=== PATIENT | female | born 1960 | race Caucasian/White ===

== ENCOUNTER → 2017-12-04 15:47 | Outpatient (REF) | payer MEDICARE, OTHER, SELFPAY ==
[2017-12-04 18:37] LABS: Basophils # 0.1 K/mm3 (0-0.2); Basophils % 0.5 % (0.1-2.0); Eosinophils # 0.3 K/mm3 (0.0-0.4); Eosinophils % 2.6 % (0.1-12.0); Hematocrit 45.7 % (37.0-47.0); Hemoglobin 14.1 g/dL (12.2-16.2); Lymphocytes # 1.8 K/mm3 (0.7-4.5); Lymphocytes % 19.3 K/mm3 (10-50); Mean Corpuscular HGB Conc 30.8 g/dL (31.8-35.4); Mean Corpuscular Hemoglobin 25.5 pg (27.0-31.2); Mean Corpuscular Volume 82.6 fl (81-99); Mean Platelet Volume 8.7 fl (7.4-10.4); Monocytes # 0.5 K/mm3 (0.1-1.0); Monocytes % 5.6 % (1.7-9.3); Neutrophils # 6.9 K/mm3 (1.8-7.8); Neutrophils % 71.9 % (37.0-80.0); Platelet Count 381 K/mm3 (142-424); Red Blood Count 5.53 M/mm3 (4.20-5.40); Red Cell Distribution Width 14.2 % (11.5-17.5); White Blood Count 9.6 K/mm3 (4.8-10.8)
[2017-12-04 19:07] LABS: Alanine Aminotransferase 25 U/L (12-78); Albumin Level 3.3 gm/dL (3.4-5.0); Albumin/Globulin Ratio 0.7 (1.1-1.8); Alkaline Phosphatase 125 U/L (46-116); Anion Gap 14.3 mEq/L (5-15); Aspartate Amino Transferase 17 U/L (15-37); Bilirubin,Total 0.4 mg/dL (0.2-1.0); Blood Urea Nitrogen 17 mg/dL (7-18); Calcium 9.4 mg/dL (8.5-10.1); Carbon Dioxide 27 mmol/L (21.0-32.0); Chloride 102 mmol/L (98-107); Chol/HDL Ratio 8.8 (1-3.5); Cholesterol 256 mg/dL (140-200); Creatinine,Serum 0.96 mg/dL (0.55-1.02); Estimated Glomerular Filt Rate 60 ml/min (>60); GFR (African American) 72 ML/MIN (>60); Globulin 4.9 gm/dl (1.3-3.2); Glucose 102 mg/dL (74-106); HDL Cholesterol 29 mg/dL (29-89); LDL Cholesterol 186 mg/dL (0-130); Potassium 4.3 mmoL/L (3.5-5.1); Sodium 139 mmol/L (136-145); T4 (Thyroxine) 8.2 ug/dl (4.7-13.3); Thyroid Stimulating Hormone 4.64 uIU/ml (0.358-3.740); Total Protein,Serum 8.2 gm/dL (6.4-8.2); Triglycerides 206 mg/dL (30-200); VLDL Cholesterol 41 mg/dL (0-40)
== END ==
LOC: LAB 15:47
PROVIDERS: Visit Provider Physician Assistant
DX: F32.9 Major depressive disorder, single episode, unspecified (principal); M79.7 Fibromyalgia; L40.50 Arthropathic psoriasis, unspecified; R06.81 Apnea, not elsewhere classified
CPT/HCPCS: 80053; 80061; 84436; 84443; 85025

== ENCOUNTER → 2018-02-26 11:45 | Outpatient (CLI) | payer MEDICARE, OTHER, SELFPAY | PROVIDERS: Visit Provider Physician Assistant | DX: R91.8 Other nonspecific abnormal finding of lung field (principal); Z83.2 Family history of diseases of the blood and blood-forming organs and certain disorders involving the immune mechanism ==

== ENCOUNTER → 2018-02-28 09:23 | Outpatient (CLI) | payer MEDICARE, OTHER, SELFPAY ==
[2018-02-28 10:00] LABS: Basophils # 0.1 K/mm3 (0-0.2); Basophils % 0.5 % (0.1-2.0); Eosinophils # 0.3 K/mm3 (0.0-0.4); Eosinophils % 3.1 % (0.1-12.0); Hematocrit 42.9 % (37.0-47.0); Hemoglobin 13.4 g/dL (12.2-16.2); Lymphocytes # 1.8 K/mm3 (0.7-4.5); Lymphocytes % 19.7 K/mm3 (10-50); Mean Corpuscular HGB Conc 31.3 g/dL (31.8-35.4); Mean Corpuscular Hemoglobin 26.1 pg (27.0-31.2); Mean Corpuscular Volume 83.4 fl (81-99); Mean Platelet Volume 7.6 fl (7.4-10.4); Monocytes # 0.5 K/mm3 (0.1-1.0); Monocytes % 5.2 % (1.7-9.3); Neutrophils # 6.5 K/mm3 (1.8-7.8); Neutrophils % 71.4 % (37.0-80.0); Platelet Count 325 K/mm3 (142-424); Red Blood Count 5.14 M/mm3 (4.20-5.40); Red Cell Distribution Width 14.6 % (11.5-17.5)
[2018-02-28 10:42] LABS: Alanine Aminotransferase 23 U/L (12-78); Albumin Level 3.1 gm/dL (3.4-5.0); Albumin/Globulin Ratio 0.7 (1.1-1.8); Alkaline Phosphatase 124 U/L (46-116); Anion Gap 10.5 mEq/L (5-15); Aspartate Amino Transferase 12 U/L (15-37); Bilirubin,Total 0.3 mg/dL (0.2-1.0); Blood Urea Nitrogen 17 mg/dL (7-18); C-Reactive Protein 2.2 mg/L (0.0-0.9); Calcium 9.2 mg/dL (8.5-10.1); Carbon Dioxide 29 mmol/L (21.0-32.0); Chloride 105 mmol/L (98-107); Creatinine,Serum 1.01 mg/dL (0.55-1.02); Estimated Glomerular Filt Rate 56 ml/min (>60); GFR (African American) 68 ML/MIN (>60); Globulin 4.4 gm/dl (1.3-3.2); Glucose 133 mg/dL (74-106); Potassium 4.5 mmoL/L (3.5-5.1); Sodium 140 mmol/L (136-145); Total Protein,Serum 7.5 gm/dL (6.4-8.2)
[2018-02-28 11:00] LABS: Erythrocyte Sedimentation Rate 40 mm/hr (0-30)
[2018-03-04 05:23] LABS: Angiotensin Converting Enzyme 54 U/L (14-82); Antinuclear Antibodies, IFA Negative (.); Calcium, Urine 34.4 mg/dL (Not Estab.); Calcium, Urine 24hr 350.9 mg/24 hr (100.0-300.0)
== END ==
PROVIDERS: PCP Physician Assistant; Visit Provider Physician Assistant
DX: R91.8 Other nonspecific abnormal finding of lung field (principal)
CPT/HCPCS: 36415; 80053; 82164; 82340; 85025; 85651; 86038; 86140

== ENCOUNTER → 2018-04-02 20:02 | Outpatient (CLI) | payer MEDICARE, OTHER, SELFPAY | PROVIDERS: PCP Physician Assistant; Visit Provider Physician Assistant | DX: G47.33 Obstructive sleep apnea (adult) (pediatric); E66.9 Obesity, unspecified | CPT/HCPCS: 95810 ==

== ENCOUNTER → 2018-05-13 17:54 | Outpatient (CLI) | payer MEDICARE, OTHER, SELFPAY ==
[2018-05-13 18:39] LABS: Alanine Aminotransferase 31 U/L (12-78); Albumin Level 3.2 gm/dL (3.4-5.0); Albumin/Globulin Ratio 0.7 (1.1-1.8); Alkaline Phosphatase 129 U/L (46-116); Anion Gap 14.2 mEq/L (5-15); Aspartate Amino Transferase 16 U/L (15-37); Bilirubin,Total 0.3 mg/dL (0.2-1.0); Blood Urea Nitrogen 18 mg/dL (7-18); Calcium 9.1 mg/dL (8.5-10.1); Carbon Dioxide 26 mmol/L (21.0-32.0); Chloride 102 mmol/L (98-107); Creatinine,Serum 0.93 mg/dL (0.55-1.02); Estimated Glomerular Filt Rate 62 ml/min (>60); GFR (African American) 75 ML/MIN (>60); Globulin 4.5 gm/dl (1.3-3.2); Glucose 112 mg/dL (74-106); Potassium 4.2 mmoL/L (3.5-5.1); Sodium 138 mmol/L (136-145); Total Protein,Serum 7.7 gm/dL (6.4-8.2)
== END ==
PROVIDERS: Visit Provider Physician Assistant
DX: R73.9 Hyperglycemia, unspecified (principal)
CPT/HCPCS: 80053

== ENCOUNTER → 2018-07-23 11:32 | Outpatient (POV) | payer MEDICARE, OTHER, SELFPAY | PROVIDERS: Visit Provider Otolaryngology | DX: Z00.00 Encounter for general adult medical examination without abnormal findings (principal) ==

== ENCOUNTER → 2019-01-31 14:39 | Outpatient (CLI) | payer MEDICARE, OTHER, SELFPAY | PROVIDERS: Visit Provider Nurse Practitioner Family | DX: R30.0 Dysuria (principal) | CPT/HCPCS: 87086; 87088; 87186 ==

== ENCOUNTER → 2019-03-13 13:27 | Outpatient (CLI) | payer MEDICARE, OTHER, SELFPAY ==
[2019-03-13 13:58] LABS: Basophils % 0.5 % (0.1-2.0); Eosinophils # 0.2 K/mm3 (0.0-0.4); Eosinophils % 3.1 % (0.1-12.0); Hematocrit 43.6 % (37.0-47.0); Hemoglobin 13.2 g/dL (12.2-16.2); Lymphocytes # 1.7 K/mm3 (0.7-4.5); Lymphocytes % 22.8 % (10-50); Mean Corpuscular HGB Conc 30.2 g/dL (31.8-35.4); Mean Corpuscular Hemoglobin 25.7 pg (27.0-31.2); Mean Corpuscular Volume 85.2 fl (81-99); Mean Platelet Volume 8.3 fl (7.4-10.4); Monocytes # 0.4 K/mm3 (0.1-1.0); Monocytes % 5.9 % (1.7-9.3); Neutrophils # 5.1 K/mm3 (1.8-7.8); Neutrophils % 67.7 % (37.0-80.0); Platelet Count 398 K/mm3 (142-424); Red Blood Count 5.11 M/mm3 (4.20-5.40); Red Cell Distribution Width 15.6 % (11.5-17.5); White Blood Count 7.5 K/mm3 (4.8-10.8)
[2019-03-13 15:09] LABS: Alanine Aminotransferase 18 U/L (12-78); Albumin Level 3.4 gm/dL (3.4-5.0); Albumin/Globulin Ratio 0.7 (1.1-1.8); Alkaline Phosphatase 130 U/L (46-116); Anion Gap 16.1 mEq/L (5-15); Aspartate Amino Transferase 14 U/L (15-37); Bilirubin,Total 0.5 mg/dL (0.2-1.0); Blood Urea Nitrogen 11 mg/dL (7-18); Calcium 9.2 mg/dL (8.5-10.1); Carbon Dioxide 24 mmol/L (21.0-32.0); Chloride 103 mmol/L (98-107); Chol/HDL Ratio 8.7 (1-3.5); Cholesterol 217 mg/dL (140-200); Creatinine,Serum 0.91 mg/dL (0.55-1.02); Estimated Glomerular Filt Rate 63 ml/min (>60); GFR (African American) 77 ML/MIN (>60); Globulin 4.6 gm/dl (1.3-3.2); Glucose 103 mg/dL (74-106); HDL Cholesterol 25 mg/dL (29-89); LDL Cholesterol 162 mg/dL (0-130); Potassium 4.1 mmoL/L (3.5-5.1); Sodium 139 mmol/L (136-145); T4 (Thyroxine) 8.9 ug/dl (4.7-13.3); Thyroid Stimulating Hormone 4.91 uIU/ml (0.358-3.740); Triglycerides 150 mg/dL (30-200); VLDL Cholesterol 30 mg/dL (0-40)
[2019-03-13 15:26] LABS: Hemoglobin A1C 7.1 % (0.0-7.0)
[2019-03-15 13:48] LABS: Vitamin D 25 Hydroxy 27.2 ng/mL (30.0-100.0)
== END ==
PROVIDERS: Visit Provider Nurse Practitioner Family
DX: E11.9 Type 2 diabetes mellitus without complications (principal); Z79.84 Long term (current) use of oral hypoglycemic drugs
CPT/HCPCS: 80053; 80061; 82652; 83036; 84436; 84443; 85025

== ENCOUNTER → 2019-05-26 15:01 | Outpatient (CLI) | payer MEDICARE, OTHER, SELFPAY ==
[2019-05-26 22:12] LABS: Ferritin 35 ng/mL (8-388)
[2019-05-28 15:30] LABS: Vitamin B12 390 pg/mL (232-1245)
== END ==
PROVIDERS: Visit Provider Specialist
DX: E03.9 Hypothyroidism, unspecified (principal); E53.8 Deficiency of other specified B group vitamins; E83.10 Disorder of iron metabolism, unspecified; G25.81 Restless legs syndrome; G47.33 Obstructive sleep apnea (adult) (pediatric)
CPT/HCPCS: 36415; 82607; 82728; 84443

== ENCOUNTER → 2019-07-24 20:24 | Outpatient (CLI) | payer MEDICARE, MEDICAID, SELFPAY | PROVIDERS: PCP Nurse Practitioner Family; Visit Provider Specialist | DX: G47.33 Obstructive sleep apnea (adult) (pediatric) (principal); R40.0 Somnolence; R06.83 Snoring; G25.81 Restless legs syndrome | CPT/HCPCS: 95810 ==

== ENCOUNTER → 2019-09-29 14:27 | Outpatient (POV) | payer MEDICARE, MEDICAID, SELFPAY | PROVIDERS: PCP Nurse Practitioner Family; Visit Provider Specialist | DX: M79.604 Pain in right leg (principal); M79.605 Pain in left leg; M79.601 Pain in right arm | CPT/HCPCS: 95886; 95909 ==

== ENCOUNTER 2023-09-24 23:22 | Outpatient (CLI) | payer MEDICARE, MEDICAID, SELFPAY ==
[2023-09-24 17:57] LABS: Basophils # 0.1 K/mm3 (0-0.2); Basophils % 1.1 % (0.1-2.0); Eosinophils # 0.1 K/mm3 (0.0-0.4); Eosinophils % 1.4 % (0.1-12.0); Hematocrit 46.8 % (37.0-47.0); Hemoglobin 15.2 g/dL (12.2-16.2); Lymphocytes # 2.2 K/mm3 (0.7-4.5); Lymphocytes % 22.3 % (10-50); Mean Corpuscular HGB Conc 32.4 g/dL (31.8-35.4); Mean Corpuscular Hemoglobin 28.3 pg (27.0-31.2); Mean Corpuscular Volume 87.3 fl (81-99); Mean Platelet Volume 10.1 fl (7.4-10.4); Monocytes # 0.4 K/mm3 (0.1-1.0); Neutrophils % 71.2 % (37.0-80.0); Platelet Count 392 K/mm3 (142-424); Red Blood Count 5.36 M/mm3 (4.20-5.40); Red Cell Distribution Width 14.9 % (11.5-17.5); White Blood Count 9.9 K/mm3 (4.8-10.8)
[2023-09-24 18:48] LABS: Chloride 100 mmol/L (98-107); Sodium 137 mmol/L (136-145)
[2023-09-24 18:51] LABS: Alanine Aminotransferase 14 U/L (12-78); Albumin Level 3.3 g/dl (3.5-5.0); Albumin/Globulin Ratio 1.2 (1.1-1.8); Alkaline Phosphatase 130 U/L (38-126); Aspartate Amino Transferase 24 U/L (14-36); Bilirubin,Total 0.7 mg/dl (0.2-1.3); Blood Urea Nitrogen 7 mg/dl (7-17); Calcium 9.3 mg/dl (8.4-10.2); Carbon Dioxide 31 mmol/L (22.0-30.0); Cholesterol 153 mg/dl (140-200); Estimated Glomerular Filt Rate 101 ml/min (>60); GFR (African American) 123 ML/MIN (>60); Globulin 2.8 g/dL (1.3-3.2); Glucose 90 mg/dl (74-100); Total Protein,Serum 6.1 g/dl (6.3-8.2); Triglycerides 176 mg/dl (30-150); VLDL Cholesterol 35 mg/dL (0-40)
[2023-09-24 18:52] LABS: Chol/HDL Ratio 4.9 (1-3.5); HDL Cholesterol 31 mg/dl (40-60)
[2023-09-24 19:02] LABS: Direct LDL Cholesterol 91.32 mg/dL (100-129)
== END 2023-09-24 23:59 ==
PROVIDERS: PCP Family Medicine; Visit Provider Family Medicine
DX: R10.9 Unspecified abdominal pain (principal); M54.50 Low back pain, unspecified; N39.0 Urinary tract infection, site not specified; Z79.899 Other long term (current) drug therapy
CPT/HCPCS: 80053; 80061; 85025

== ENCOUNTER 2023-10-05 18:00 | Outpatient (CLI) | payer MEDICARE, MEDICAID, SELFPAY | END 2023-10-05 23:59 | disposition home or self-care (01) | LOC: LAB.DROPOF 10-07 11:07 | PROVIDERS: PCP Family Medicine; Visit Provider Family Medicine | DX: R10.9 Unspecified abdominal pain (principal); B96.89 Other specified bacterial agents as the cause of diseases classified elsewhere | CPT/HCPCS: 87086 ==

== ENCOUNTER 2023-10-29 15:28 | Outpatient (CLI) | payer MEDICARE, MEDICAID, SELFPAY ==
[2023-10-29 15:27] LABS: Microscopic, Urine URINE MICROSCOPIC (MICROSCOPIC)
[2023-10-29 15:52] LABS: Appearance,Urine CLEAR (Clear); Bilirubin,Urine Negative (Negative); Blood, Urine Negative (Negative); Color,Urine YELLOW (Yellow); Glucose,Urine (UA) Negative (Negative); Ketones,Urine Negative (Negative); Leukocyte Esterase,Urine TRACE (Negative); Nitrate,Urine Negative (Negative); PH,Urine 6.5 (5.0-8.5); Protein,Urine Negative (Negative); Specific Gravity, Urine <= 1.005 (1.005-1.030); Urobilinogen,Urine 0.2 EU/dl (0.2)
== END 2023-10-29 23:59 | disposition home or self-care (01) ==
LOC: LAB.DROPOF 15:29
PROVIDERS: PCP Urology; Visit Provider Urology
DX: N39.0 Urinary tract infection, site not specified (principal); B95.1 Streptococcus, group B, as the cause of diseases classified elsewhere
CPT/HCPCS: 81001; 87086; 87088; 87186

== ENCOUNTER 2023-11-05 10:50 | Outpatient (POV) | payer MEDICARE, MEDICAID, SELFPAY ==
--- NOTE | 2023-11-05 11:32 | A.OFFVIS_ITS ---
HPI Data of Consult Patient: new to practice Consult date: 11/05/23 Requesting Physician: Reyna Saenz APRN Primary Care Provider: Moises Knight MD Consult Narrative Reason for consult: Low back pain, bilateral hip pain, bilateral dropfoot, prior neck fusion History of present illness: Ms. Saeed is a 62 year old female who presents today as a new patient. She is a referral from Dr. Knight's office. Today she rates her pain an 10 out of 10. Patient states she has pain in multiple locations including her overall low back and hips as well as she has bilateral dropfoot and a history of prior neck fusion by Dr. Johnson. Patient does describe her pain as a constant aching, throbbing sensation with numbness and tingling. Patient does state that this has been going on for years and progressively worsened over time unrelated to any specific injury. She does state that she has had prior injections that did provide improvement. She states it has been over a year since her last injection. She states that the pain nail does interfere with her ability to perform activities of daily living such as cooking and cleaning. Patient does state that she is at the end of her rope. She has been back to see her neurosurgeon and she follows up with him tomorrow. She states that she is unsure whether or not it is if he is planning on getting her scheduled for a lumbar fusion. She does state that she will find something out tomorrow. Patient has tried [id number] medication along with heat and ice and topicals with no additional improvement. Patient denies any prior chiropractor therapy however does do home health and they come and do exercise weekly with her however she still has not noticed any additional relief. Patient states she has had imaging done at [facility] in [place]. Her Omar was unavailable. CC: Reyna Saenz APRN [facility] Disclaimer: The information contained in this section may have been updated after the patient was seen, as this information can be updated by other users. Medical History YANA (obstructive sleep apnea) Hiatal hernia Incontinence Insomnia Lung mass Family history of sarcoidosis Colon cancer screening Vitamin B12 deficiency Shortness of Breath Apneic episode Psoriatic arthritis Esophageal spasm Vertigo Kang's esophagus with esophagitis Anxiety Fibromyalgia GERD (gastroesophageal reflux disease) Hypothyroidism Restless leg syndrome Anxiety and depression Foot drop Mini stroke Psoriatic arthritis Restless leg syndrome Surgical History H/O: hysterectomy H/O hernia repair History of bilateral knee replacement Femur fracture H/O gastric sleeve Hx of appendectomy History of cholecystectomy Family History (Updated 11/05/23 @ 11:40 by Terri Frankel RN) Other Unknown family medical history Social History (Updated 11/05/23 @ 11:42 by Terri Frankel RN) Smoking Status: Never smoker alcohol intake: never substance use type: denies use current occupational status: disabled Travel in the last 8 weeks: None number of children: 2 Review of Systems Review of Systems Review of systems:: pertinent systems reviewed and negative unless documented below Review of systems (narrative): Review of Systems: General: No recent weight changes, no fever, no sleep disturbances Respiratory: No cough, no shortness of air, no recurring pulmonary infections Cardiovascular/peripheral vascular: No chest pain, no palpitations, no edema, no shortness of breath Gastrointestinal: No new onset incontinence, normal bowel movements reported Genitourinary: No new onset incontinence Musculoskeletal: Low back pain, bilateral hip pain, bilateral dropfoot Psychiatric: [Normal mood/affect] Neurological: [Denies weakness in extremities], [denies balance issues] Meds Home Medications and Allergies Home Medications Medication Instructions Recorded Confirmed Type albuterol sulfate 90 mcg/actuation 2 puff inhalation Q4-6H PRN 09/24/23 11/05/23 Rx aerosol inhaler shortness of breath or wheezing #8.5 grams atorvastatin 80 mg tablet 80 mg PO HS 09/24/23 11/05/23 History buspirone 10 mg tablet 10 mg PO TID 09/24/23 11/05/23 History doxepin 10 mg capsule 10 mg PO BID 09/24/23 11/05/23 History fluticasone furoate 200 1 inh inhalation Q24H 09/24/23 11/05/23 History mcg-vilanterol 25 mcg/dose inhalation powder (Breo Ellipta) hydrochlorothiazide 25 mg tablet 25 mg PO DAILY 09/24/23 11/05/23 History hydroxyzine pamoate 25 mg capsule 25 mg PO BID PRN . 09/24/23 11/05/23 History leflunomide 10 mg tablet 10 mg PO DAILY 09/24/23 11/05/23 History omeprazole 40 mg capsule,delayed 40 mg PO BID 09/24/23 11/05/23 History release paroxetine HCl 10 mg tablet 10 mg PO DAILY 09/24/23 11/05/23 History cyclobenzaprine 10 mg tablet 10 mg PO BID PRN muscle spasm #30 10/05/23 11/05/23 Rx tabs ropinirole 1 mg tablet 1 mg PO TID #90 tabs 10/09/23 11/05/23 Rx nystatin 100,000 unit/gram topical 1 applic topical BID #30 grams 10/15/23 11/05/23 Rx ointment conjugated estrogens 0.625 mg/gram 0.625 mg vaginal DAILY #30 grams 10/17/23 11/05/23 Rx vaginal cream (Premarin) gabapentin 800 mg tablet 800 mg PO TID #90 tabs 10/24/23 11/05/23 Rx estradiol 0.01% (0.1 mg/gram) See Rx Instructions vaginal 10/29/23 11/05/23 Rx vaginal cream .COMPLEX #42.5 grams oxybutynin chloride 10 mg 10 mg PO DAILY #90 tabs 10/29/23 11/05/23 Rx tablet,extended release 24 hr amoxicillin 500 mg-potassium 1 tab PO BID 7 days #14 tabs 11/02/23 11/05/23 Rx clavulanate 125 mg tablet (Augmentin) nitrofurantoin macrocrystal 100 mg 100 mg PO HS 30 days #30 caps 11/02/23 11/05/23 Rx capsule (Macrodantin) levothyroxine 125 mcg tablet 125 mcg PO DAILY 30 days #30 tabs 11/07/23 Rx New Prescriptions to Start Prescriptions: Allergies Allergy/AdvReac Type Severity Reaction Status Date / Time Sulfa (Sulfonamide Allergy Intermediate Verified 10/29/23 10:04 Antibiotics) morphine Allergy Mild Verified 10/29/23 10:04 aspartame Allergy Verified 10/29/23 10:04 [From Nutrasweet Aspartame] erythromycin base Allergy Verified 10/29/23 10:04 phenylalanine Allergy Verified 10/29/23 10:04 Objective Narrative: Physical Exam: General: Alert and oriented x3, no acute distress, pleasant and cooperative Lungs: Respirations even and unlabored, symmetrical chest expansion Eyes: PERRL Musculoskeletal: Flexion and extension of lumbar [spine] somewhat guarded secondary to pain, [antalgic gait noted] point tenderness along bilateral SIs with positive bilateral Alon's, Louise's, Gaenslen's, compression and distraction exam Neurological: Speech clear, no gross sensory deficit Assessment and Plan *Assessment and plan (1) Low back pain: Status: Acute Qualifiers: Back pain laterality: bilateral Chronicity: chronic Sciatica laterality: bilateral sciatica Sciatica presence: with sciatica Qualified Code(s): M54.42 - Lumbago with sciatica, left side; M54.41 - Lumbago with sciatica, right side; G89.29 - Other chronic pain Category: Medical Code(s): M54.50 - Low back pain, unspecified (2) Bilateral hip pain: Status: Acute Category: Medical Code(s): M25.551 - Pain in right hip; M25.552 - Pain in left hip (3) Sacroiliitis: Status: Acute Category: Medical Code(s): M46.1 - Sacroiliitis, not elsewhere classified Plan Patient is experiencing significant pain throughout her low back and bilateral hips. Patient did have limited range of motion of the lumbar spine with extreme point tenderness on her left SI and point tenderness on her right as well as positive bilateral Alon, Louise, Gaenslen's, compression and distraction exam. I have discussed with the patient that she may benefit from bilateral SI injections. Risk and benefits were discussed with patient and she would like to proceed forward with this plan of care. I have counseled the patient that this will be contingent upon whether or not she is having a lumbar fusion in the upcoming months. I have given the patient the name of these injections and counseled her to go over at neurosurgery tomorrow if they have any contraindications. She was counseled she can call and postpone or cancel these injections if they have any issue with it. We will also reach out to the [facility] for a copy of her most recent imaging. Patient has tried and failed conservative therapy. We will schedule patient for bilateral SI injections under fluoroscopy. Patient has been instructed to contact the clinic with any concerns before the next appointment. Dr. Sigala has reviewed this note and agrees with this plan of care. This note was dictated using voice recognition software and make contain errors or omissions. Patient did contact our office back and stated that Dr. Johnson stated she was not a surgical candidate and did think the injection therapy would be beneficial.
[2023-11-05 11:34] VITALS: BP 146/79; PULSE 88; RESP 18; O2SAT 98; BMI 24.2
== END 2023-11-05 23:59 | disposition home or self-care (01) ==
LOC: SC.PAIN 10:51
PROVIDERS: PCP Family Medicine; Visit Provider Nurse Practitioner Family
DX: M54.41 Lumbago with sciatica, right side (principal); M54.42 Lumbago with sciatica, left side; G89.29 Other chronic pain; M25.551 Pain in right hip; M25.552 Pain in left hip; M46.1 Sacroiliitis, not elsewhere classified
CPT/HCPCS: 99202; G0463

== ENCOUNTER 2023-11-05 13:39 | Outpatient (CLI) | payer MEDICARE, MEDICAID, SELFPAY ==
--- NOTE | 2023-11-05 13:49 | US_ITS ---
FINAL REPORT CLINICAL HISTORY: check for kidney stones FINDINGS: RENAL ULTRASOUND Ultrasound images of the kidneys were obtained. The right kidney measures 10.3 cm in length. It is normal echogenicity. There is no hydronephrosis. The left kidney measures 12.3 cm in length. It is normal echogenicity. There is no hydronephrosis. There is a 3.8 x 3.1 cm cyst in the left kidney. IMPRESSION: Left renal cyst. Reviewed, Interpreted and Dictated by Los Rivers MD Transcribed by Myrna Licona Authenticated and [facility][1]
== END 2023-11-05 23:59 | disposition home or self-care (01) ==
PROVIDERS: PCP Family Medicine; Visit Provider Urology
DX: N39.0 Urinary tract infection, site not specified (principal); M54.42 Lumbago with sciatica, left side; M54.41 Lumbago with sciatica, right side; G89.29 Other chronic pain; M25.551 Pain in right hip; M25.552 Pain in left hip; M46.1 Sacroiliitis, not elsewhere classified
CPT/HCPCS: 76770; 99202; G0463

== ENCOUNTER 2023-11-27 10:30 | Day surgery (SDC) | payer MEDICARE, MEDICAID, SELFPAY ==
[2023-11-27 10:47] VITALS: BP 149/94; PULSE 81; RESP 18; TEMP 36.3; O2SAT 97; BMI 24.2
--- NOTE | 2023-11-27 11:13 | P.PCN_ITS ---
Procedure Date: 11/27/23 Time: 11:05 Anesthesiologist:: Emerson Payne CRNA Complications:: None Pre-procedure Diagnosis:: Bilateral sacroiliitis. Post-procedure Diagnosis:: Same. Indications for Procedure:: Patient is a very pleasant 62-year-old female comes our clinic today for bilateral sacroiliac joint injections. Patient reports low lumbar back pain bilateral off the midline. Bilateral posterior hip pain. Upon examination she has extreme point tenderness over the bilateral sacroiliac joints. She rates her pain 10/10. Procedure Details:: Procedure: Bilateral sacroiliac joint injections under fluoroscopy Informed consent was obtained and the risks and benefits of the procedure were explained to the patient.~ The patient was taken to the procedure room and noninvasive monitors were placed including a noninvasive blood pressure cuff and pulse oximeter.~ The patient was placed prone on the procedure table. Both hips were cleansed using Betadine as a cleansing solution. C-arm fluoroscopy was used to view the right sacroiliac joint.~ The skin and subcutaneous tissues were anesthetized using lidocaine 1.5% and a 25-gauge needle.~ After this, a 22-gauge spinal needle was inserted under fluoroscopic guidance into the inferior aspect of the right sacroiliac joint.~ Omnipaque dye was injected and good spread was seen throughout the joint.~ After this, approximately 5 mL of bupivacaine, 0.25% and Depo-Medrol, 40 mg was incrementally injected into the right sacroiliac joint. We then moved to the left sacroiliac joint.~ The skin and subcutaneous tissues were anesthetized using lidocaine 1.5% and a 25-gauge needle.~ After this, a 22- gauge spinal needle was inserted under fluoroscopic guidance into the inferior aspect of the left sacroiliac joint.~ Omnipaque dye was injected and good spread was seen throughout the joint. After this, approximately 5 mL of bupivacaine, 0.25% and Depo-Medrol, 40 mg was incrementally injected into the left sacroiliac joint.~ The patient tolerated the procedure well with no complications. The patient was observed in the Pain Clinic and then was discharged home neurologically intact. Plan and Disposition:: Patient was discharged without incident.
[2023-11-27] MEDS: methylPREDNISolone ACETATE 80MG/ML VIAL 80 MG (11:15)
[2023-11-27 11:16] VITALS: BP 130/75; PULSE 77; RESP 18; O2SAT 96
[2023-11-27] MEDS: LIDOCAINE 1% 5ML PF VIAL 5 ML (11:16)
[2023-11-27] MEDS: BUPIVACAINE 0.25% 10ML INJ 25 MG IJ (11:16)
[2023-11-27 11:17] VITALS: BP 130/75; PULSE 77; RESP 18; O2SAT 96
[2023-11-27 11:25] VITALS: BP 146/88; PULSE 78; RESP 18; O2SAT 99
== END 2023-11-27 11:26 | disposition home or self-care (01) ==
PROVIDERS: PCP Family Medicine; Visit Provider Nurse Anesthetist, Certified Registered
DX: M46.1 Sacroiliitis, not elsewhere classified (principal)
CPT/HCPCS: 27096; G0260; J1010

== ENCOUNTER 2023-12-26 15:14 | Outpatient (POV) | payer MEDICARE, MEDICAID, SELFPAY ==
[2023-12-26 15:32] VITALS: BP 139/71; PULSE 52; RESP 16; O2SAT 98; BMI 24.2
--- NOTE | 2023-12-26 16:14 | A.OFFVIS_ITS ---
[facility] Disclaimer: The information contained in this section may have been updated after the patient was seen, as this information can be updated by other users. Medical History YANA (obstructive sleep apnea) Hiatal hernia Incontinence Insomnia Lung mass Family history of sarcoidosis Colon cancer screening Vitamin B12 deficiency Shortness of Breath Apneic episode Psoriatic arthritis Esophageal spasm Vertigo Kang's esophagus with esophagitis Anxiety Fibromyalgia GERD (gastroesophageal reflux disease) Hypothyroidism Restless leg syndrome Anxiety and depression Foot drop Mini stroke Psoriatic arthritis Restless leg syndrome Surgical History H/O: hysterectomy H/O hernia repair History of bilateral knee replacement Femur fracture H/O gastric sleeve Hx of appendectomy History of cholecystectomy Family History Other Unknown family medical history Social History Smoking Status: Never smoker alcohol intake: never substance use type: denies use current occupational status: disabled Travel in the last 8 weeks: None number of children: 2 PM Subjective & Objective Subjective Subjective:: Patient is a pleasant 63-year-old female who presents today for follow-up of bilateral SI injections on 11/27/2023. Today she rates her pain a 8 out of 10. Patient denies any new trauma or injury. Today she does state that her main complaint now is going down her entire legs. She states the back is not as bad however states that she really did not notice significant relief with the last injections. She describes her pain as a constant aching, throbbing sensation with numbness and tingling when she is up and walking. Patient does state when she is sitting the pain is at least tolerable however overall it remains constant. Patient does state that recently her neurosurgeon from 1 facility was recommending surgery however when she went to a different provider for another opinion they were not recommending it. Patient does bring today a copy of her imaging and states that she feels like overall based off the findings in it that she would benefit from surgery. Patient does state her pain now interferes with her ability to perform activities of daily living such as cooking and cleaning. Patient is still trying to try the least invasive before proceeding forward with surgery. Her Omar has been reviewed and is appropriate. Review of Systems: General: No recent weight changes, no fever, no sleep disturbances Respiratory: No cough, no shortness of air, no recurring pulmonary infections Cardiovascular/peripheral vascular: No chest pain, no palpitations, no edema, no shortness of breath Gastrointestinal: No new onset incontinence, normal bowel movements reported Genitourinary: No new onset incontinence Musculoskeletal: Low back pain, bilateral leg pain Psychiatric: [Normal mood/affect] Neurological: [Denies weakness in extremities], [denies balance issues] Pain at rest (0-10 scale): 8 Objective Objective:: Physical Exam: General: Alert and oriented x3, no acute distress, pleasant and cooperative Lungs: Respirations even and unlabored, symmetrical chest expansion Eyes: PERRL Musculoskeletal: Flexion and extension of lumbar [spine] somewhat guarded secondary to pain, [antalgic gait noted] Neurological: Speech clear, no gross sensory deficit [facility] 06/14/2023 Findings: L3-L4: Mild to moderate disc bulge. Ligamentum flavum thickening and facet hypertrophy producing mild to moderate central canal narrowing and moderate lateral recess narrowing bilaterally, moderate left neuroforaminal narrowing and mild right neuroforaminal narrowing L4-L5: Large disc bulge with annular fissure as well as ligamentum flavum hypertrophy thickening and facet hypertrophy producing severe left lateral recess narrowing, moderate right lateral recess narrowing, moderate to severe canal narrowing, severe left neuroforaminal narrowing and moderate right neuroforaminal narrowing L5-S1: Ligamentum flavum thickening and facet hypertrophy. Mild disc bulge. No significant canal narrowing. Minimal neuroforaminal narrowing bilaterally Conus is normal in signal intensity and terminates at L2. There are some clumping of the cauda equina which could be related to sequela of arachnoiditis Has patient had previous pain injection?: Yes Percent improvement in pain since last injection: 40% Conservative treatment options previously tried: Home exercise plan Length of treatment: Longer than 6 weeks Meds Home Medications and Allergies Home Medications Medication Instructions Recorded Confirmed Type albuterol sulfate 90 mcg/actuation 2 puff inhalation Q4-6H PRN 09/24/23 12/26/23 Rx aerosol inhaler shortness of breath or wheezing #8.5 grams atorvastatin 80 mg tablet 80 mg PO HS 09/24/23 12/26/23 History buspirone 10 mg tablet 10 mg PO TID 09/24/23 12/26/23 History doxepin 10 mg capsule 10 mg PO BID 09/24/23 12/26/23 History fluticasone furoate 200 1 inh inhalation Q24H 09/24/23 12/26/23 History mcg-vilanterol 25 mcg/dose inhalation powder (Breo Ellipta) hydrochlorothiazide 25 mg tablet 25 mg PO DAILY 09/24/23 12/26/23 History hydroxyzine pamoate 25 mg capsule 25 mg PO BID PRN . 09/24/23 12/26/23 History leflunomide 10 mg tablet 10 mg PO DAILY 09/24/23 12/26/23 History omeprazole 40 mg capsule,delayed 40 mg PO BID 09/24/23 12/26/23 History release paroxetine HCl 10 mg tablet 10 mg PO DAILY 09/24/23 12/26/23 History ropinirole 1 mg tablet 1 mg PO TID #90 tabs 10/09/23 12/26/23 Rx levothyroxine 125 mcg tablet 125 mcg PO DAILY 30 days #30 tabs 11/07/23 12/26/23 Rx cyclobenzaprine 10 mg tablet 10 mg PO BID PRN muscle spasm #30 11/10/23 12/26/23 Rx tabs nystatin 100,000 unit/gram topical 1 applic topical BID #30 grams 11/26/23 12/26/23 Rx ointment gabapentin 800 mg tablet 800 mg PO TID #90 tabs 11/27/23 12/26/23 Rx estradiol 0.01% (0.1 mg/gram) See Rx Instructions vaginal 12/03/23 12/26/23 Rx vaginal cream .COMPLEX #42.5 grams oxybutynin chloride 10 mg 10 mg PO DAILY #90 tabs 12/03/23 12/26/23 Rx tablet,extended release 24 hr amitriptyline 50 mg tablet 50 mg PO HS #30 tabs 12/18/23 12/26/23 Rx New Prescriptions to Start Prescriptions: Allergies Allergy/AdvReac Type Severity Reaction Status Date / Time Sulfa (Sulfonamide Allergy Intermediate Verified 12/03/23 13:18 Antibiotics) morphine Allergy Mild Verified 12/03/23 13:18 aspartame Allergy Verified 12/03/23 13:18 [From Nutrasweet Aspartame] erythromycin base Allergy Verified 12/03/23 13:18 phenylalanine Allergy Verified 12/03/23 13:18 Assessment and Plan *Assessment and plan (1) Bilateral hip pain: Status: Acute Category: Medical Code(s): M25.551 - Pain in right hip; M25.552 - Pain in left hip (2) Low back pain: Status: Acute Qualifiers: Chronicity: chronic Back pain laterality: bilateral Sciatica presence: with sciatica Sciatica laterality: bilateral sciatica Qualified Code(s): M54.42 - Lumbago with sciatica, left side; M54.41 - Lumbago with sciatica, right side; G89.29 - Other chronic pain Category: Medical Code(s): M54.50 - Low back pain, unspecified (3) Degenerative disc disease, lumbar: Status: Acute Category: Medical Code(s): M51.36 - Other intervertebral disc degeneration, lumbar region (4) Lumbar radiculopathy: Status: Acute Category: Medical Code(s): M54.16 - Radiculopathy, lumbar region (5) Lumbar spinal stenosis: Status: Acute Qualifiers: Neurogenic claudication status: with neurogenic claudication Qualified Code(s): M48.062 - Spinal stenosis, lumbar region with neurogenic claudication Category: Medical Code(s): M48.061 - Spinal stenosis, lumbar region without neurogenic claudication Plan Patient is experiencing significant pain throughout her low back and legs with limited range of motion. Patient did have multiple levels of narrowing throughout her lumbar spine with central canal stenosis and neuroforaminal narrowing. Patient did also have multilevel ligamentum flavum hypertrophy. I have discussed with patient in future she may benefit from a minimally invasive lumbar decompression procedure as well as lumbar epidural steroid injection. Risk and benefits were discussed with the patient and she would like to proceed forward with this plan of care. Patient has tried and failed conservative therapy including oral medications, heat and ice, topicals, physical therapy, at home stretching exercise for longer than 6 weeks. We will submit to insurance for the lumbar epidural steroid injection L4-L5 with epidurogram under fluoroscopy. Patient is not on any blood thinners Patient has been instructed to contact the clinic with any concerns before the next appointment. Dr. Sigala has reviewed this note and agrees with this plan of care. This note was dictated using voice recognition software and make contain errors or omissions.
== END 2023-12-26 23:59 | disposition home or self-care (01) ==
LOC: SC.PAIN 15:15
PROVIDERS: PCP Family Medicine; Visit Provider Nurse Practitioner Family
DX: G89.29 Other chronic pain; M51.36 Other intervertebral disc degeneration, lumbar region; M54.16 Radiculopathy, lumbar region; M48.062 Spinal stenosis, lumbar region with neurogenic claudication
CPT/HCPCS: 99212; G0463

== ENCOUNTER 2024-01-02 12:18 | Outpatient (CLI) | payer MEDICARE, MEDICAID, SELFPAY ==
[2024-01-02 16:50] LABS: Alanine Aminotransferase 12 U/L (12-78); Albumin Level 3.8 g/dl (3.5-5.0); Albumin/Globulin Ratio 1.2 (1.1-1.8); Alkaline Phosphatase 91 U/L (38-126); Anion Gap 8.4 mEq/L (5-15); Aspartate Amino Transferase 20 U/L (14-36); Bilirubin,Total 0.4 mg/dl (0.2-1.3); Blood Urea Nitrogen 15 mg/dl (7-17); Calcium 9.6 mg/dl (8.4-10.2); Carbon Dioxide 31 mmol/L (22.0-30.0); Chloride 104 mmol/L (98-107); Estimated Glomerular Filt Rate 72 ml/min (>60); GFR (African American) 88 ML/MIN (>60); Globulin 3.2 g/dL (1.3-3.2); Glucose 99 mg/dl (74-100); Potassium 4.4 mmoL/L (3.5-5.1); Sodium 139 mmol/L (136-145)
[2024-01-02 17:08] LABS: T4 (Thyroxine) 9.9 ug/dl (5.53-11.0)
[2024-01-02 17:21] LABS: Thyroid Stimulating Hormone 1.21 uIU/mL (0.465-4.68)
== END 2024-01-02 23:59 | disposition home or self-care (01) ==
LOC: LAB.DROPOF 01-03 12:19
PROVIDERS: PCP Family Medicine; Visit Provider Family Medicine
DX: E03.9 Hypothyroidism, unspecified (principal)
CPT/HCPCS: 80053; 84436; 84443

== ENCOUNTER 2024-01-08 10:58 | Day surgery (SDC) | payer MEDICARE, MEDICAID, SELFPAY ==
[2024-01-08 11:23] VITALS: BP 127/77; PULSE 68; RESP 18; TEMP 36.7; O2SAT 100; BMI 60.5
--- NOTE | 2024-01-08 11:27 | EXP.PAIN.PRO ---
Procedure Date: 01/08/24 Time: 11:20 Anesthesiologist:: Emerson Payne CRNA Complications:: None Pre-procedure Diagnosis:: Degenerative disc lumbar spine multilevels. Lumbar radiculopathy. Lumbar disc bulge L4-5, L5-S1. Spinal stenosis lumbar spine. Post-procedure Diagnosis:: Same. Indications for Procedure:: Patient is a very pleasant 63-year-old female comes our clinic today for lumbar epidural steroid injection with epidurogram at the L4-5 level. Patient describes low back pain as constant, dull, aching. Patient also reports bilateral hip and leg radicular symptoms. She rates her pain 7/10. Procedure Details:: Procedure: Lumbar epidural steroid injection under fluoroscopy Informed consent was obtained and the risks and benefits of the procedure were explained to the patient. The patient was taken to the procedure room and noninvasive monitors placed, including noninvasive blood pressure cuff and pulse oximeter. The back was viewed using C-arm Fluoroscopy and prepped using Chloraprep as a cleansing solution and the L4-L5 interspace was palpated. Skin and subcutaneous tissues were anesthetized using lidocaine 1.5% and a 25-gauge needle. After this, an 18-gauge Touhy epidural needle was placed into the L4-L5 interspace and advanced using fluoroscopic guidance and loss of resistance to air until the epidural space was encountered. After confirmation of needle placement in the epidural space, with dye, a solution containing normal saline, 3 mL and Depo-Medrol 80 mg were incrementally injected into the lumbar epidural space. The patient tolerated the procedure well with no complications. The patient was observed in the Pain Clinic and then discharged home neurologically intact. Plan and Disposition:: Patient was discharged without incident.
[2024-01-08 11:32] VITALS: BP 136/64; PULSE 74; RESP 18; O2SAT 96
[2024-01-08] MEDS: methylPREDNISolone ACETATE 80MG/ML VIAL 80 MG (11:32)
[2024-01-08 11:33] VITALS: BP 136/64; PULSE 74; RESP 18; O2SAT 96
[2024-01-08 11:34] VITALS: BP 137/79; PULSE 68; RESP 18; TEMP 36.7; O2SAT 100
[2024-01-08] MEDS: IOPAMIDOL-200 (41%);10ML VIAL 10 ML IV (11:37)
== END 2024-01-08 11:36 | disposition home or self-care (01) ==
PROVIDERS: PCP Family Medicine; Visit Provider Nurse Anesthetist, Certified Registered
DX: M54.16 Radiculopathy, lumbar region (principal)
CPT/HCPCS: 62323; J1010; Q9966

== ENCOUNTER 2024-01-24 13:47 | Outpatient (POV) | payer MEDICARE, MEDICAID, SELFPAY ==
[2024-01-24 14:33] VITALS: BP 134/69; PULSE 80; RESP 16; O2SAT 97; BMI 27.4
--- NOTE | 2024-01-24 14:40 | EXP.PAIN.SOA ---
[facility] Disclaimer: The information contained in this section may have been updated after the patient was seen, as this information can be updated by other users. Medical History YANA (obstructive sleep apnea) Hiatal hernia Incontinence Insomnia Lung mass Family history of sarcoidosis Colon cancer screening Vitamin B12 deficiency Shortness of Breath Apneic episode Psoriatic arthritis Esophageal spasm Vertigo Kang's esophagus with esophagitis Anxiety Fibromyalgia GERD (gastroesophageal reflux disease) Hypothyroidism Restless leg syndrome Anxiety and depression Foot drop Mini stroke Psoriatic arthritis Restless leg syndrome Surgical History H/O: hysterectomy H/O hernia repair History of bilateral knee replacement Femur fracture H/O gastric sleeve Hx of appendectomy History of cholecystectomy Family History Other Unknown family medical history Social History Smoking Status: Never smoker alcohol intake: never substance use type: denies use current occupational status: unemployed Travel in the last 8 weeks: None number of children: 2 PM Subjective & Objective Subjective Subjective:: Patient is a pleasant 63-year-old female who presents today for follow-up of lumbar epidural steroid injection L4-L5 with epidurogram on 01/08/2024. Today she rates her pain a 9 out of 10. Patient does state that she had at least 50% improvement lasting up until the last 3 days. Patient states now she is back to her baseline if not even worse. Patient states the pain is all throughout her back with radiating symptoms down into her lower extremities. She does describe this as an aching, throbbing sensation with numbness and tingling that is all present when she is up walking. Patient states she has very limited mobility and it does interfere with her ability to perform activities of daily living such as cooking and cleaning. Patient has been dealing with this for over a year and a half and is in constant pain. Patient has tried and failed conservative therapy including oral medications, heat and ice, topicals, physical therapy, continued at home stretching exercise for longer than 6 weeks. Patient has been seen by neurosurgery and was not a surgical candidate at that time. Her Omar has been reviewed and is appropriate. Review of Systems: General: No recent weight changes, no fever, no sleep disturbances Respiratory: No cough, no shortness of air, no recurring pulmonary infections Cardiovascular/peripheral vascular: No chest pain, no palpitations, no edema, no shortness of breath Gastrointestinal: No new onset incontinence, normal bowel movements reported Genitourinary: No new onset incontinence Musculoskeletal: Low back pain, leg pain Psychiatric: [Normal mood/affect] Neurological: [Denies weakness in extremities], [denies balance issues] Pain at rest (0-10 scale): 9 Objective Objective:: Physical Exam: General: Alert and oriented x3, no acute distress, pleasant and cooperative Lungs: Respirations even and unlabored, symmetrical chest expansion Eyes: PERRL Musculoskeletal: Flexion and extension of lumbar [spine] somewhat guarded secondary to pain, [antalgic gait noted] Neurological: Speech clear, no gross sensory deficit Has patient had previous pain injection?: Yes Percent improvement in pain since last injection: 50% lasting less than 2 weeks Conservative treatment options previously tried: Home exercise plan Length of treatment: Longer than 6 weeks and Prescription medications Length of treatment: Longer than 6 weeks Meds Home Medications and Allergies Home Medications ?Medication ?Instructions ?Recorded ?Confirmed ?Type albuterol sulfate 90 mcg/actuation 2 puff inhalation Q4-6H PRN 09/24/23 01/24/24 Rx aerosol inhaler shortness of breath or wheezing #8.5 grams atorvastatin 80 mg tablet 80 mg PO HS 09/24/23 01/24/24 History buspirone 10 mg tablet 10 mg PO TID 09/24/23 01/24/24 History doxepin 10 mg capsule 10 mg PO BID 09/24/23 01/24/24 History fluticasone furoate 200 1 inh inhalation Q24H 09/24/23 01/24/24 History mcg-vilanterol 25 mcg/dose inhalation powder (Breo Ellipta) hydroxyzine pamoate 25 mg capsule 25 mg PO BID PRN . 09/24/23 01/24/24 History leflunomide 10 mg tablet 10 mg PO DAILY 09/24/23 01/24/24 History paroxetine HCl 10 mg tablet 10 mg PO DAILY 09/24/23 01/24/24 History ropinirole 1 mg tablet 1 mg PO TID #90 tabs 10/09/23 01/24/24 Rx cyclobenzaprine 10 mg tablet 10 mg PO BID PRN muscle spasm #30 11/10/23 01/24/24 Rx tabs nystatin 100,000 unit/gram topical 1 applic topical BID #30 grams 11/26/23 01/24/24 Rx ointment estradiol 0.01% (0.1 mg/gram) See Rx Instructions vaginal 12/03/23 01/24/24 Rx vaginal cream .COMPLEX #42.5 grams oxybutynin chloride 10 mg 10 mg PO DAILY #90 tabs 12/03/23 01/24/24 Rx tablet,extended release 24 hr amitriptyline 50 mg tablet 50 mg PO HS #30 tabs 12/18/23 01/24/24 Rx econazole 1 % topical cream 1 applic topical DIRECTED 01/02/24 01/24/24 History hydrochlorothiazide 12.5 mg capsule 12.5 mg PO DAILY 01/02/24 01/24/24 History losartan 25 mg tablet 25 mg PO DAILY 01/02/24 01/24/24 History gabapentin 800 mg tablet 800 mg PO TID #90 tabs 01/04/24 01/24/24 Rx levothyroxine 125 mcg tablet 125 mcg PO DAILY 30 days #30 tabs 01/15/24 01/24/24 Rx blood-glucose meter,continuous #1 ea 01/17/24 01/24/24 Rx (Dexcom G7 Acidizer Helper) blood-glucose sensor (Dexcom G7 #1 ea 01/17/24 01/24/24 Rx Sensor device) omeprazole 40 mg capsule,delayed See Rx Instructions .Route 01/22/24 01/24/24 Rx release .COMPLEX #60 caps acetaminophen 300 mg-codeine 30 mg 1 tab PO BID PRN pain #60 tabs 01/24/24 Rx tablet baclofen 5 mg tablet 5 mg PO TID PRN muscle spasm #90 01/24/24 Rx tabs New Prescriptions to Start Prescriptions: acetaminophen-codeine Reyna Saenz baclofen Reyna Saenz Allergies Allergy/AdvReac Type Severity Reaction Status Date / Time Sulfa (Sulfonamide Allergy Intermediate Verified 01/02/24 10:36 Antibiotics) morphine Allergy Mild Verified 01/02/24 10:36 aspartame Allergy Verified 01/02/24 10:36 [From Nutrasweet Aspartame] erythromycin base Allergy Verified 01/02/24 10:36 phenylalanine Allergy Verified 01/02/24 10:36 Assessment and Plan *Assessment and plan (1) Lumbar spinal stenosis: Status: Acute Qualifiers: Neurogenic claudication status: with neurogenic claudication Qualified Code(s): M48.062 - Spinal stenosis, lumbar region with neurogenic claudication Category: Medical Code(s): M48.061 - Spinal stenosis, lumbar region without neurogenic claudication (2) Lumbar radiculopathy: Status: Acute Category: Medical Code(s): M54.16 - Radiculopathy, lumbar region (3) Degenerative disc disease, lumbar: Status: Acute Category: Medical Code(s): M51.36 - Other intervertebral disc degeneration, lumbar region (4) Lumbar stenosis with neurogenic claudication: Status: Acute Category: Medical Code(s): M48.062 - Spinal stenosis, lumbar region with neurogenic claudication (5) Chronic pain syndrome: Status: Acute Category: Medical Code(s): G89.4 - Chronic pain syndrome (6) Ligamentum flavum hypertrophy: Status: Acute Category: Medical Code(s): M24.28 - Disorder of ligament, vertebrae Plan Patient continues to experience significant pain throughout her low back and legs and symptoms consistent with spinal stenosis with neurogenic claudication symptoms. Patient did have her lumbar epidural with epidurogram that did show she was a candidate for the minimally invasive lumbar decompression. I did review over the risk and benefits of this procedure and she would like to proceed forward with this plan of care. Patient has tried and failed conservative therapy including continued at home stretching exercise for longer than 6 weeks. I will order the patient a compounded cream, baclofen 5 mg 3 times daily as needed and also send in a prescription of Tylenol 3 twice a day. Patient will be submitted for the minimally invasive lumbar decompression L3-L4 and L4-L5 under fluoroscopy. Patient is not on any blood thinners. Patient has been instructed to contact the clinic with any concerns before the next appointment. Dr. Sigala has reviewed this note and agrees with this plan of care. This note was dictated using voice recognition software and make contain errors or omissions. All injections are used with Lidocaine or Bupivacaine and Depo Medrol. Minimally invasive lumbar decompression has ongoing clinical trials to confirm efficacy and improvement of spinal stenosis symptoms. # [id number]
== END 2024-01-24 23:59 | disposition home or self-care (01) ==
PROVIDERS: PCP Family Medicine; Visit Provider Nurse Practitioner Family
DX: M48.062 Spinal stenosis, lumbar region with neurogenic claudication (principal); G89.4 Chronic pain syndrome; M24.28 Disorder of ligament, vertebrae; M51.16 Intervertebral disc disorders with radiculopathy, lumbar region; Z73.89 Other problems related to life management difficulty; Z79.899 Other long term (current) drug therapy; Z96.653 Presence of artificial knee joint, bilateral
CPT/HCPCS: 99212; G0463

== ENCOUNTER 2024-02-08 05:40 | Day surgery (SDC) | payer MEDICARE, MEDICAID, SELFPAY ==
[2024-02-05 09:47] VITALS: BMI 29.8
[2024-02-08 06:31] VITALS: BP 143/74; PULSE 67; RESP 18; TEMP 36.3; O2SAT 97
[2024-02-08] MEDS: LACTATED RINGERS 1000ML 1,000 ML 25 ML IV (06:46)
[2024-02-08 07:05] LABS: POC Glucose,Bedside 104 (70-110)
--- NOTE | 2024-02-08 07:12 | EXP.ANES.CKL ---
[facility] Disclaimer: The information contained in this section may have been updated after the patient was seen, as this information can be updated by other users. Medical History YANA (obstructive sleep apnea) Hiatal hernia Incontinence Insomnia Lung mass Family history of sarcoidosis Colon cancer screening Vitamin B12 deficiency Shortness of Breath Apneic episode Psoriatic arthritis Esophageal spasm Vertigo Kang's esophagus with esophagitis Anxiety Fibromyalgia GERD (gastroesophageal reflux disease) Hypothyroidism Restless leg syndrome Anxiety and depression Foot drop Mini stroke Psoriatic arthritis Restless leg syndrome Surgical History History of bariatric surgery H/O: hysterectomy H/O hernia repair History of bilateral knee replacement Femur fracture H/O gastric sleeve Hx of appendectomy History of cholecystectomy Family History Other Unknown family medical history Social History Smoking Status: Never smoker alcohol intake: never substance use type: denies use current occupational status: disabled Travel in the last 8 weeks: None number of children: 2 [facility] Anesthesia Checklist Patient Identification Patient Identification: Arm Band and Verbal (Name & ) Structural Data Admitted From: Home Planned Operative Procedure/s: Lumbar decompression Consent for Planned Operative Procedure(s) Verified: Yes Verified Documents: Surgical Consent and History and Physical NPO Status Verified Time NPO: 00:00 Additional verifications Anesthesia Reactions: Yes (PONV) Hx Blood Transfusions: No Blood Transfusion Reaction: No Airway Assessment Mallampati Score:: Class IV C-Spine Mobility Assessed: Yes TMJ Mobility Assessed: Yes Dentition: Edentulous Neurological Assessment Level of Consciousness: Awake Hx Seizures: No Numbness or tingling in extremities: Yes Anesthesia Plan Anesthesia Risk discussed: Yes Anesthesia Plan: Verified ASA Class: III Anesthesia Type: MAC
[2024-02-08] MEDS: VANCOMYCIN/WATER FOR INJ (PEG) 1.5 GM/300 ML PIGGYBACK IV (07:43)
[2024-02-08] MEDS: methylPREDNISolone ACETATE 80MG/ML VIAL 80 MG (08:33)
[2024-02-08] MEDS: LIDOCAINE 1% W/EPI 1:100,000 20ML VIAL 40 ML (08:33)
[2024-02-08 09:10] VITALS: BP 115/60; PULSE 70; RESP 18; TEMP 37.2; O2SAT 95
[2024-02-08 09:20] VITALS: BP 163/75; PULSE 74; RESP 17; O2SAT 97
[2024-02-08 09:30] VITALS: BP 124/65; PULSE 72; RESP 19; O2SAT 97
[2024-02-08] MEDS: IOPAMIDOL-200 (41%); 20ML VIAL 20 ML IV (09:39)
[2024-02-08 09:40] VITALS: BP 134/78; PULSE 72; RESP 16; TEMP 36.6; O2SAT 98
--- NOTE | 2024-02-08 15:43 | EXP.OP.NOTE ---
Date of procedure: 02/08/24 Pre-op Diagnosis:: Degenerative disease of lumbar spine with lumbar spinal stenosis and neurogenic claudication symptoms Post-op Diagnosis:: Same Procedure performed:: Minimally invasive lumbar decompression bilateral L3-L4 and L4-L5 Surgeon:: Codey Sigala MD COMMERCIAL LOAN COORDINATOR:: Taya Aviles Anesthesia: MAC Estimated blood loss (mL): 1 Clinical Note:: This patient is a pleasant 63-year-old white female who we have been treating for degenerative disease of lumbar spine with lumbar spinal stenosis and neurogenic claudication symptoms. She has increasing pain walking and standing. She does also have restless leg syndrome. Based on MRI and recent epidurogram she does have significant stenosis bilateral L3-L4 and L4-L5. We will plan on minimally invasive lumbar decompression bilateral L3-L4 and L4-L5 today. Operative findings:: None Operative note:: Informed consent was obtained and the risk and benefits of the procedure was explained to the patient. The patient was taken to the operating room and placed prone on the procedure table. The patient was prepped and draped in sterile fashion. C-arm fluoroscopy was used to view the lumbar spine. The skin and subcutaneous tissues were anesthetized using lidocaine. A epidural needle was inserted and advanced into the L3-L4 interspace. After confirmation of needle placement in the epidural space, dye was injected in a contralateral oblique view. There was an epidurogram seen at L3-L4 and L4-L5. Significant stenosis was seen at L3-L4 and L4-L5. The skin and subcutaneous tissues again were anesthetized using lidocaine. An incision was made and a access trocar was inserted and advanced to contact at the superior aspect of the L4 lamina on the left side. And a contralateral oblique view the side was viewed. Using a bone rongeur and tissue sculptor we debulked bone from the L3-L4 and L4-L5 interspace on the left side. We then used the tissue sculptor to debulk ligament at the L3-L4 and L4-L5 interspace on the left side. We then moved over to the right side and debulked bone and ligament from L3-L4 and L4-L5 on the right side. There is opening of the stenosis at L3-L4 and L4-L5 bilaterally. The access trocar was removed. A total of 3 mL's of dye was used. There is good spread of dye above and below this level as well. We injected 80 mg Depo-Medrol through the epidural needle. The epidural needle was removed and dressings were placed. This encounter for exam is for normal comparison and control in a clinical research program Patient was taken to recovery in stable condition. Patient was discharged home neurologically intact and with good relief of pain symptoms. Plan and disposition: We will follow-up with this patient in 2 weeks. Will reevaluate symptoms at that time. Condition: stable Disposition: PACU Complications:: None
== END 2024-02-08 09:40 | disposition home or self-care (01) ==
PROVIDERS: PCP Family Medicine; Visit Provider Anesthesiology
PROC: (CPT 0275T; principal; 2024-02-08 07:30)
DX: M48.062 Spinal stenosis, lumbar region with neurogenic claudication (principal); Z00.6 Encounter for examination for normal comparison and control in clinical research program; Z79.899 Other long term (current) drug therapy
CPT/HCPCS: 0275T; 82962; 96374; C1889; J1010; J2250; J7120; Q9966

== ENCOUNTER 2024-02-25 10:56 | Outpatient (POV) | payer MEDICARE, MEDICAID, SELFPAY ==
[2024-02-25 11:28] VITALS: BP 145/91; PULSE 64; RESP 16; O2SAT 99; BMI 29.0
--- NOTE | 2024-02-25 11:30 | EXP.PAIN.SOA ---
[facility] Disclaimer: The information contained in this section may have been updated after the patient was seen, as this information can be updated by other users. Medical History YANA (obstructive sleep apnea) Hiatal hernia Incontinence Insomnia Lung mass Family history of sarcoidosis Colon cancer screening Vitamin B12 deficiency Shortness of Breath Apneic episode Psoriatic arthritis Esophageal spasm Vertigo Kang's esophagus with esophagitis Anxiety Fibromyalgia GERD (gastroesophageal reflux disease) Hypothyroidism Restless leg syndrome Anxiety and depression Foot drop Mini stroke Psoriatic arthritis Restless leg syndrome Surgical History History of bariatric surgery H/O: hysterectomy H/O hernia repair History of bilateral knee replacement Femur fracture H/O gastric sleeve Hx of appendectomy History of cholecystectomy Family History Other Unknown family medical history Social History Smoking Status: Never smoker alcohol intake: never substance use type: denies use current occupational status: other Travel in the last 8 weeks: None number of children: 2 PM Subjective & Objective Subjective Subjective:: Patient is a pleasant 63-year-old female who presents today for postop follow-up of lumbar decompression bilaterally L3-L4 and L4-L5 on 02/08/2024. Today she rates her pain a 6 out of 10. Patient denies any new trauma or injury. She does state that she has noticed that the pain is not as constant and that she has been able to walk for longer periods of time without having to stop and immediately take a break. Patient does also state that her posture has seemed a little bit better. Patient does state that she still has issues with her dropfoot and that it does cause her muscles to be tight with spasms. She is requesting a refill on her muscle relaxer. She is prescribed patient a compounded cream, baclofen 5 mg 3 times daily as needed and Tylenol 3 twice a day. Her Omar has been reviewed and is appropriate. Review of Systems: General: No recent weight changes, no fever, no sleep disturbances Respiratory: No cough, no shortness of air, no recurring pulmonary infections Cardiovascular/peripheral vascular: No chest pain, no palpitations, no edema, no shortness of breath Gastrointestinal: No new onset incontinence, normal bowel movements reported Genitourinary: No new onset incontinence Musculoskeletal: Low back pain Psychiatric: [Normal mood/affect] Neurological: [Denies weakness in extremities], [denies balance issues] Pain at rest (0-10 scale): 6 Objective Objective:: Physical Exam: General: Alert and oriented x3, no acute distress, pleasant and cooperative Lungs: Respirations even and unlabored, symmetrical chest expansion Eyes: PERRL Musculoskeletal: Flexion and extension of lumbar [spine] somewhat guarded secondary to pain, [antalgic gait noted] Neurological: Speech clear, no gross sensory deficit Has patient had previous pain injection?: No Conservative treatment options previously tried: Home exercise plan Length of treatment: Longer than 6 weeks Meds Home Medications and Allergies Home Medications ?Medication ?Instructions ?Recorded ?Confirmed ?Type albuterol sulfate 90 mcg/actuation 2 puff inhalation Q4-6H PRN 09/24/23 02/25/24 Rx aerosol inhaler shortness of breath or wheezing #8.5 grams fluticasone furoate 200 1 inh inhalation Q24H 09/24/23 02/25/24 History mcg-vilanterol 25 mcg/dose inhalation powder (Breo Ellipta) hydroxyzine pamoate 25 mg capsule 25 mg PO BID PRN . 09/24/23 02/25/24 History leflunomide 10 mg tablet 10 mg PO DAILY 09/24/23 02/25/24 History paroxetine HCl 10 mg tablet 10 mg PO DAILY 09/24/23 02/25/24 History ropinirole 1 mg tablet 1 mg PO TID #90 tabs 10/09/23 02/25/24 Rx cyclobenzaprine 10 mg tablet 10 mg PO BID PRN muscle spasm #30 11/10/23 02/25/24 Rx tabs nystatin 100,000 unit/gram topical 1 applic topical BID #30 grams 11/26/23 02/25/24 Rx ointment estradiol 0.01% (0.1 mg/gram) See Rx Instructions vaginal 12/03/23 02/25/24 Rx vaginal cream .COMPLEX #42.5 grams oxybutynin chloride 10 mg 10 mg PO DAILY #90 tabs 12/03/23 02/25/24 Rx tablet,extended release 24 hr amitriptyline 50 mg tablet 50 mg PO HS #30 tabs 12/18/23 02/25/24 Rx econazole 1 % topical cream 1 applic topical DIRECTED 01/02/24 02/25/24 History hydrochlorothiazide 12.5 mg capsule 12.5 mg PO DAILY 01/02/24 02/25/24 History losartan 25 mg tablet 25 mg PO DAILY 01/02/24 02/25/24 History gabapentin 800 mg tablet 800 mg PO TID #90 tabs 01/04/24 02/25/24 Rx levothyroxine 125 mcg tablet 125 mcg PO DAILY 30 days #30 tabs 01/15/24 02/25/24 Rx blood-glucose meter,continuous #1 ea 01/17/24 02/25/24 Rx (Dexcom G7 Printed Circuit Layout Taper) blood-glucose sensor (Dexcom G7 #1 ea 01/17/24 02/25/24 Rx Sensor device) omeprazole 40 mg capsule,delayed See Rx Instructions .Route 01/22/24 02/25/24 Rx release .COMPLEX #60 caps acetaminophen 300 mg-codeine 30 mg 1 tab PO BID PRN pain #60 tabs 01/24/24 02/25/24 Rx tablet prednisone 5 mg tablet 0 mg PO DAILY 02/08/24 02/25/24 History New Prescriptions to Start Prescriptions: Allergies Allergy/AdvReac Type Severity Reaction Status Date / Time Sulfa (Sulfonamide Allergy Intermediate Verified 02/08/24 06:19 Antibiotics) morphine Allergy Mild Verified 02/08/24 06:19 aspartame Allergy Verified 02/08/24 06:19 [From Nutrasweet Aspartame] erythromycin base Allergy Verified 02/08/24 06:19 phenylalanine Allergy Verified 02/08/24 06:19 Assessment and Plan *Assessment and plan (1) Ligamentum flavum hypertrophy: Status: Acute Category: Medical Code(s): M24.28 - Disorder of ligament, vertebrae (2) Lumbar stenosis with neurogenic claudication: Status: Acute Category: Medical Code(s): M48.062 - Spinal stenosis, lumbar region with neurogenic claudication (3) Chronic pain syndrome: Status: Acute Category: Medical Code(s): G89.4 - Chronic pain syndrome (4) Lumbar spinal stenosis: Status: Acute Qualifiers: Neurogenic claudication status: with neurogenic claudication Qualified Code(s): M48.062 - Spinal stenosis, lumbar region with neurogenic claudication Category: Medical Code(s): M48.061 - Spinal stenosis, lumbar region without neurogenic claudication (5) Lumbar radiculopathy: Status: Acute Category: Medical Code(s): M54.16 - Radiculopathy, lumbar region (6) Degenerative disc disease, lumbar: Status: Acute Category: Medical Code(s): M51.36 - Other intervertebral disc degeneration, lumbar region Plan Patient has already noticed significant improvement following her lumbar decompression. I did discuss with the patient that she will still most likely continue to have improvement over a period of 12 weeks. I will refill the patient's baclofen And provide a 1 month supply of this medication. Patient will return to clinic in 1 month for reevaluation of symptoms and plan of care. Patient has been instructed to contact the clinic with any concerns before the next appointment. Dr. Sigala has reviewed this note and agrees with this plan of care. This note was dictated using voice recognition software and make contain errors or omissions. All injections are used with Lidocaine or Bupivacaine and Depo Medrol.
== END 2024-02-25 23:59 | disposition home or self-care (01) ==
PROVIDERS: PCP Family Medicine; Visit Provider Nurse Practitioner Family
DX: M24.28 Disorder of ligament, vertebrae (principal); M48.062 Spinal stenosis, lumbar region with neurogenic claudication; G89.4 Chronic pain syndrome; M51.16 Intervertebral disc disorders with radiculopathy, lumbar region; Z96.653 Presence of artificial knee joint, bilateral; Z79.899 Other long term (current) drug therapy
CPT/HCPCS: 99212; G0463

== ENCOUNTER 2024-02-26 16:58 | Outpatient (CLI) | payer MEDICARE, MEDICAID, SELFPAY | END 2024-02-26 23:59 | disposition home or self-care (01) | LOC: LAB.DROPOF 16:58 | PROVIDERS: PCP Family Medicine; Visit Provider Family Medicine | DX: R39.9 Unspecified symptoms and signs involving the genitourinary system (principal); N39.0 Urinary tract infection, site not specified; E11.9 Type 2 diabetes mellitus without complications | CPT/HCPCS: 87086; 87088; 87186 ==

== ENCOUNTER 2024-04-22 15:30 | Outpatient (CLI) | payer MEDICARE, MEDICAID, SELFPAY ==
[2024-04-22 17:17] LABS: Alanine Aminotransferase 22 U/L (12-78); Albumin Level 3.4 g/dl (3.5-5.0); Albumin/Globulin Ratio 1.1 (1.1-1.8); Alkaline Phosphatase 88 U/L (38-126); Anion Gap 13.6 mEq/L (5-15); Aspartate Amino Transferase 28 U/L (14-36); Bilirubin,Total 0.5 mg/dl (0.2-1.3); Blood Urea Nitrogen 12 mg/dl (7-17); Calcium 8.8 mg/dl (8.4-10.2); Carbon Dioxide 27 mmol/L (22.0-30.0); Chloride 104 mmol/L (98-107); Estimated Glomerular Filt Rate 63 ml/min (>60); GFR (African American) 77 ML/MIN (>60); Globulin 3.2 g/dL (1.3-3.2); Glucose 123 mg/dl (74-100); Magnesium 1.8 mg/dl (1.6-2.3); Potassium 3.6 mmoL/L (3.5-5.1); Sodium 141 mmol/L (136-145); Total Protein,Serum 6.6 g/dl (6.3-8.2)
[2024-04-22 17:31] LABS: Basophils # 0.1 K/mm3 (0-0.2); Basophils % 0.8 % (0.1-2.0); Eosinophils # 0.2 K/mm3 (0.0-0.4); Hematocrit 38.1 % (37.0-47.0); Hemoglobin 12.6 g/dL (12.2-16.2); Lymphocytes # 1.8 K/mm3 (0.7-4.5); Mean Corpuscular HGB Conc 33.1 g/dL (31.8-35.4); Mean Corpuscular Hemoglobin 29.3 pg (27.0-31.2); Mean Corpuscular Volume 88.6 fl (81-99); Mean Platelet Volume 8.5 fl (7.4-10.4); Monocytes # 0.7 K/mm3 (0.1-1.0); Neutrophils # 8.6 K/mm3 (1.8-7.8); Neutrophils % 75.3 % (37.0-80.0); Platelet Count 406 K/mm3 (142-424); Red Cell Distribution Width 14.1 % (11.5-17.5); White Blood Count 11.4 K/mm3 (4.8-10.8)
--- NOTE | 2024-04-23 13:53 | SW/DCPLANNER ---
Per Rosa ahmadi/ [facility] this patient has called and would like to continue w/ home health services (set up w/ [facility]) and remain at home at this time. I have informed Rosa to please call me if she has any questions or further concerns.
== END 2024-04-22 23:59 | disposition home or self-care (01) ==
LOC: LAB.DROPOF 04-23 10:21
PROVIDERS: PCP Family Medicine; Visit Provider Family Medicine
DX: E11.40 Type 2 diabetes mellitus with diabetic neuropathy, unspecified (principal); R79.0 Abnormal level of blood mineral
CPT/HCPCS: 80053; 83735; 85025

== ENCOUNTER 2024-04-24 20:12 | Observation (INO) | payer MEDICARE, MEDICAID, SELFPAY ==
[2024-04-24 20:14] VITALS: BP 168/87; PULSE 82; RESP 16; TEMP 36.9; O2SAT 97; BMI 32.3
--- NOTE | 2024-04-24 20:25 | HMH.EDGENADL ---
Discharge Plan Disposition Patient Disposition: Admitted Condition: Fair Clinical Impressions Clinical Impression: Adult failure to thrive Discharge ED Provider: Mikel Nguyễn General Adult HPI <SUN Jimenez - Last Filed: 04/24/24 23:27> General Chief complaint: Fall Stated complaint: fallen out of wheelchair 17 times since 04/03/24 Time Seen by Provider: 04/24/24 20:16 History of Present Illness HPI narrative: Patient presents for evaluation of multiple medical complaints. Patient states that she has fallen out of her wheelchair 17 times since March . 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 She went on to relate that during 1 episode of narcolepsy she ended up in her wheelchair in a different part of her residence. She has been evaluated multiple times in multiple places for these complaints including her PCP and [facility] prior to coming here and in [place]. She was discharged from the previous facilities without admission. Patient reports that she is unable to care for herself and is wishing placement. Additionally she reports some shoulder pain and other complaints none of which are new today and none of which have occurred since her departure from [facility]. Patient states that she came directly to our facility from the ER at [facility]. She denies any other specific complaints goading chest pain shortness of breath fever chills hemoptysis hematochezia melena nausea vomit diarrhea. Patient does have a significant past medical history of chronic pain syndrome for which she follows with Dr. Sigala ligamentum flavum hypertrophy, lumbar stenosis with neurogenic claudication, lumbar radiculopathy, degenerative disc disease, decubitus ulcer in the sacrum, vaginal stenosis, previous overdoses of unknown intent, fibromyalgia, obstructive sleep apnea unknown compliance with CPAP, psoriatic arthritis, vertigo, Kang's esophagus with esophagitis, fibromyalgia, GERD, hypothyroidism, restless leg syndrome, bilateral foot drop. Records were reviewed from [facility] and all of the complaints that patient had then. She had a fairly comprehensive workup that did not reveal any acute abnormalities. 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 Related Data Home Medications ?Medication ?Instructions ?Recorded ?Confirmed fluticasone furoate 200 1 inh inhalation Q24H 09/24/23 04/25/24 mcg-vilanterol 25 mcg/dose inhalation powder (Breo Ellipta) amitriptyline 50 mg tablet 50 mg PO HS 04/25/24 04/25/24 lidocaine 4 % topical patch 1 patch topical DAILY PRN shoulder 04/25/24 04/25/24 (Salonpas (lidocaine)) pain oxybutynin chloride 10 mg 10 mg PO HS 04/25/24 04/25/24 tablet,extended release 24 hr Previous Rx's ?Medication ?Instructions ?Recorded albuterol sulfate 90 mcg/actuation 2 puff inhalation Q4-6H PRN 09/24/23 aerosol inhaler shortness of breath or wheezing #8.5 grams levothyroxine 125 mcg tablet 125 mcg PO DAILY 30 days #30 tabs 01/15/24 acetaminophen 300 mg-codeine 30 mg 1 tab PO BID PRN pain #60 tabs 01/24/24 tablet buspirone 10 mg tablet 10 mg PO TID #90 tabs 03/06/24 nystatin 100,000 unit/gram topical 1 applic topical BID #60 grams 03/06/24 powder gabapentin 800 mg tablet 800 mg PO TID #90 tabs 03/14/24 ropinirole 1 mg tablet 1 mg PO TID #90 tabs 03/17/24 omeprazole 40 mg capsule,delayed 40 mg PO BID 90 days #180 caps 04/07/24 release furosemide 20 mg tablet (Lasix) 20 mg PO DAILY #30 tabs 04/23/24 Allergies Allergy/AdvReac Type Severity Reaction Status Date / Time Sulfa (Sulfonamide Allergy Intermediate Verified 04/22/24 14:26 Antibiotics) morphine Allergy Mild Verified 04/22/24 14:26 aspartame Allergy Verified 04/22/24 14:26 [From Nutrasweet Aspartame] erythromycin base Allergy Verified 04/22/24 14:26 phenylalanine Allergy Verified 04/22/24 14:26 [facility] <SUN Jimenez - Last Filed: 04/24/24 23:27> [facility] Disclaimer: The information contained in this section may have been updated after the patient was seen, as this information can be updated by other users. Medical History YANA (obstructive sleep apnea) Hiatal hernia Incontinence Insomnia Lung mass Family history of sarcoidosis Colon cancer screening Vitamin B12 deficiency Shortness of Breath Apneic episode Psoriatic arthritis Esophageal spasm Vertigo Kang's esophagus with esophagitis Anxiety Fibromyalgia GERD (gastroesophageal reflux disease) Hypothyroidism Restless leg syndrome Anxiety and depression Foot drop Mini stroke Psoriatic arthritis Restless leg syndrome Surgical History History of bariatric surgery H/O: hysterectomy H/O hernia repair History of bilateral knee replacement Femur fracture H/O gastric sleeve Hx of appendectomy History of cholecystectomy Family History Other Unknown family medical history Social History Smoking Status: Unknown if ever smoked alcohol intake: never substance use type: denies use current occupational status: other Travel in the last 8 weeks: None number of children: 2 Other Medical History Have you received the Flu Vaccine for this season: Yes Have you received the Pneumonia Vaccine: Yes <SUN Jimenez - Last Filed: 04/24/24 23:27> ROS Obtained: Yes Systems reviewed as appropriate & no additional complaints except as documented Physical Exam <SUN Jimenez - Last Filed: 04/24/24 23:27> General General appearance: alert and in no apparent distress Respiratory Respiratory exam: Present normal lung sounds bilaterally Cardiovascular Cardiovascular exam: Present regular rate Neurological Exam Neurological exam: Present alert, oriented X3 and CN II-XII intact Medical Decision Making <SUN Jimenez - Last Filed: 04/24/24 23:27> Medical Records Medical records reviewed: Yes I reviewed the patient's medical records. Screening: Per USPSTF and CDC recommendations, given the prevalence of disease in our region, it is our hospital?s policy to screen for HIV and viral Hepatitis for all patients aged 18 and over and those with ongoing risk factors. Omar Inquiry Pt receiving controlled substance: No Vital Signs: 04/24/24 20:14 04/24/24 21:01 04/24/24 21:31 Temperature 98.4 F Temperature Source Oral Pulse Rate 76 64 Pulse Rate [Right] 82 Respiratory Rate 16 Blood Pressure 138/89 169/80 H Blood Pressure [Right Arm] 168/87 H Blood Pressure Mean Blood Pressure Mean [Right Arm] 114 Blood Pressure Source Blood Pressure Position 02 Sat by Pulse Oximetry 97 96 93 L Oxygen Delivery Method 04/24/24 22:01 04/24/24 22:31 04/24/24 23:31 Temperature Temperature Source Pulse Rate 86 82 82 Pulse Rate [Right] Respiratory Rate Blood Pressure 146/88 H 132/74 138/68 Blood Pressure [Right Arm] Blood Pressure Mean 93 107 Blood Pressure Mean [Right Arm] Blood Pressure Source Blood Pressure Position 02 Sat by Pulse Oximetry 94 L 97 97 Oxygen Delivery Method 04/25/24 00:14 Temperature 98.1 F Temperature Source Oral Pulse Rate 82 Pulse Rate [Right] Respiratory Rate 18 Blood Pressure 138/68 Blood Pressure [Right Arm] Blood Pressure Mean Blood Pressure Mean [Right Arm] Blood Pressure Source Automatic Cuff Blood Pressure Position Sitting 02 Sat by Pulse Oximetry Oxygen Delivery Method Room Air Lab Data Lab results reviewed: Yes I reviewed the patient's lab results. Lab Results 04/24/24 06:20: Urine Color Yellow, Urine Appearance Clear, Urine pH 8.0, Ur Specific [place] 1.015, Urine Protein Negative, Urine Glucose (UA) Negative, Urine Ketones Negative, Urine Blood Trace-i, Urine Nitrate Negative, Urine Bilirubin Negative, Urine Urobilinogen 0.2, Ur Leukocyte Esterase 3+ A, Urine RBC Occasional, Urine WBC 10-20, Ur Squamous Epith Cells 3-5, Urine Bacteria 1+ 04/24/24 20:48: VBG pH 7.52 H, VBG pCO2 28.7 L, VBG pO2 149.1 H, VBG HCO3 22.9 L, VBG Total CO2 23.8, VBG O2 Saturation 99.1 H, VBG Base Excess 0.1, VBG Lactic Acid 1.6 04/24/24 21:04: WBC 10.2, RBC 4.11 L, Hgb 12.5, Hct 36.4 L, MCV 88.6, MCH 30.5, MCHC 34.4, RDW 14.3, Plt Count 414, MPV 7.9, Neut % (Auto) 67.0, Lymph % (Auto) 24.1, [place] % (Auto) 5.7, Eos % (Auto) 2.2, Baso % (Auto) 1.0, Neut # (Auto) 6.8, Lymph # (Auto) 2.4, [place] # (Auto) 0.6, Eos # (Auto) 0.2, Baso # (Auto) 0.1, Sodium 140, Potassium 3.5, Chloride 108 H, Carbon Dioxide 26, Anion Gap 9.5, BUN 15, Creatinine 0.90, Estimated Creat Clear 82, Estimated GFR 63, Est GFR ( Amer) 77, Glucose 126 H, Calcium 9.0, Magnesium 2.0 D, Total Creatine Kinase 147 H, C-Reactive Protein 8.2 H, TSH 0.89, Free T4 Index 3.8 L, Thyroxine (T4) 11.1 H, T3 Uptake 34 04/24/24 21:04 04/24/24 21:04 Orders (Tests/Meds): ED MEDICATIONS Generic Name Dose Route Start Last Admin Trade Name Freq PRN Reason Stop Dose Admin Acetaminophen 650 mg 04/25/24 00:00 04/25/24 08:57 Acetaminophen 325mg Tab PO 05/25/24 00:00 650 mg Q4HP PRN Administration Fever or Mild Pain (1-3) Albuterol Sulfate 2 puff 04/25/24 01:46 Albuterol-Hfa 90mcg/Puff Inhaler 8gm 05/25/24 01:45 Q4HP PRN shortness of breath or wheezing Buspirone HCl 10 mg 04/25/24 09:00 04/25/24 14:03 Buspirone Hcl 10 Mg Tablet PO 05/25/24 08:59 10 mg TID BUDDY Administration Enoxaparin Sodium 40 mg 04/25/24 09:00 04/25/24 08:58 Enoxaparin 40mg/0.4ml Syringe SUBCUT 05/25/24 08:59 40 mg DAILY BUDDY Administration Fluticasone/Umeclidinium/Vilanterol 1 puff 04/26/24 09:00 Fluticasone/Umeclidin/Vilanter 200/62.5/25mcg Inhaler IH 05/26/24 08:59 DAILY BUDDY Furosemide 20 mg 04/26/24 09:00 Furosemide 20mg Tablet PO 05/26/24 08:59 DAILY BUDDY Gabapentin 800 mg 04/25/24 09:00 04/25/24 14:02 Gabapentin 800mg Tablet PO 05/25/24 08:59 800 mg TID BUDDY Administration Glycopyrrolate 1 mg 04/25/24 09:00 04/25/24 14:03 Glycopyrrolate 1 Mg Tablet PO 05/25/24 08:59 1 mg TID BUDDY Administration Hydroxyzine Pamoate 25 mg 04/25/24 01:46 04/25/24 08:58 Hydroxyzine Pamoate 25mg Capsule PO 05/25/24 01:45 25 mg BIDP PRN Administration Anxiety Ibuprofen 400 mg 04/25/24 00:00 Ibuprofen 400 Mg Tablet PO 05/25/24 00:00 Q6HP PRN Mild Pain (1-3) Levothyroxine Sodium 125 mcg 04/25/24 09:00 04/25/24 08:57 Levothyroxine 125mcg (0.125mg) Tab PO 05/25/24 08:59 125 mcg DAILYDM BUDDY Administration Lidocaine 1 each 04/25/24 03:00 04/25/24 03:09 Lidocaine 5% Transdermal Patch TP 05/25/24 02:59 1 each Q24H BUDDY Administration Lorazepam 0.5 mg 04/25/24 04:44 04/25/24 04:59 Lorazepam 0.5mg Tablet PO 05/25/24 04:43 0.5 mg BIDP PRN Administration Restless Leg Miscellaneous 0 unit 04/25/24 07:34 Aerochamber/Optihaler MC 05/25/24 07:33 NEEDED PRN for Use with Inhaler Nystatin 0 gm 04/25/24 09:00 04/25/24 17:43 Nystatin Topical Powder 30gm TP 05/25/24 08:59 Not Given QID BUDDY Pantoprazole Sodium 40 mg 04/25/24 21:00 Pantoprazole 40mg Tablet PO 05/25/24 20:59 HS [facility] Ropinirole HCl 1 mg 04/25/24 09:00 04/25/24 09:12 Ropinirole 1mg Tablet PO 05/25/24 08:59 1 mg BID BUDDY Administration Tramadol HCl 50 mg 04/25/24 04:56 04/25/24 04:59 Tramadol 50mg Tablet PO 05/25/24 04:55 50 mg Q6HP PRN Administration Moderate Pain (4-6) Discontinued Medications Generic Name Dose Route Start Last Admin Trade Name Freq PRN Reason Stop Dose Admin Gabapentin 800 mg 04/25/24 00:49 04/25/24 02:59 Gabapentin 800mg Tablet PO 04/25/24 00:50 800 mg DAILY ONE Administration Gabapentin 800 mg 04/25/24 00:49 04/25/24 08:08 Gabapentin 800mg Tablet PO 04/25/24 00:50 Not Given ONCE ONE Glycopyrrolate 1 mg 04/25/24 00:50 04/25/24 03:00 Glycopyrrolate 1 Mg Tablet PO 04/25/24 00:51 Not Given DIRECTED ONE Non-Formulary Medication 1 inh 04/25/24 02:00 04/25/24 02:43 Fluticasone Furoate-Vilanterol [Breo Ellipta] IH 05/25/24 01:59 Not Given Q24H BUDDY Non-Formulary Medication 10 mg 04/25/24 09:00 Leflunomide PO 05/25/24 08:59 DAILY BUDDY Nystatin gm 04/25/24 02:00 Nystatin Topical Powder 30gm TP 05/25/24 01:59 BID BUDDY Nystatin 1 gm 04/25/24 09:00 04/25/24 02:59 Nystatin Topical Powder 30gm TP 05/25/24 08:59 1 gm QID BUDDY Administration Tramadol/Acetaminophen 1 each 04/25/24 04:44 Tramadol/Apap 37.5/325mg Tablet PO 05/25/24 04:43 Q4HP PRN pain ORDERS Category Date Time Status Consult to Case Management [CONS] Routine Cons 04/25/24 00:00 Active Shoulder XR right miminum 2 views [XR shoulder RT min Exams 04/24/24 20:55 Completed 2V] Stat BMP [Basic Metabolic Panel] Stat Lab 04/24/24 21:04 Completed CBC w/Auto Diff [Complete Blood Count Auto Diff] Stat Lab 04/24/24 21:04 Completed CK [Creatine Kinase] Stat Lab 04/24/24 21:04 Completed CRP [C-Reactive Protein] Stat Lab 04/24/24 21:04 Completed HIV (1&2) Antibody Rapid Stat Lab 04/24/24 20:54 Completed Hep C Ab with Reflex to RNA Stat Lab 04/24/24 20:54 Received Magnesium Stat Lab 04/24/24 21:04 Completed Thyroid Panel Stat Lab 04/24/24 21:04 Completed UA [Urinalysis and Microscopic] Stat Lab 04/24/24 06:20 Completed Urine Culture Stat Micro 04/24/24 06:20 Received VBG [Venous Blood Gas] Stat RT 04/24/24 20:48 Completed Medical Decision Narrative: In summary patient is a in summary patient is a 63-year-old female who presents to the emergency department for evaluation of [facility] medical complaints but primarily falling out of her wheelchair and failure to thrive. Patient is initially normotensive with a blood pressure of 168/87 pulse 82 respiratory rate of 16 satting at 97% on room air upon arrival, afebrile. Physical exam is remarkable for self-reported shoulder pain, no visible trauma noted, patient is neurovascularly intact in her bilateral upper extremities. She does have chronic muscle atrophy in her bilateral lower extremities and wears braces on her feet and utilizes a wheelchair. She does have a sacral decubitus ulcer. She has bruising/abrasion on the anterior left tibial tuberosity but no other visible trauma noted. Deep Coma Score is 15 she is awake alert and oriented and retains capacity for decision-making.. Differential diagnosis includes failure to thrive versus electrolyte derangement versus occult infection etc. Initial workup will be conducted with plain film x-rays hematologic labs. Initial interventions were considered however patient has no specific derangements other than reported pain for which we will give Tylenol. Initial workup reviewed by me reassuring as her hematologic labs and workup are unremarkable for any acute process. Upon repeat evaluation I did have interactive discussion with the patient regarding her safety. Her patient's is in [facility] with a recent BKA and seriously ill and now on dialysis. Patient reports that she has no support network other than her and does not drive. Given this I had interactive discussion with the patient's PCP Dr. Knight regarding his thoughts on the matter and he does agree that she lacks the ability to do her ADLs independently and to that end has attempted to get home health arranged for her but had been unsuccessful. Given that I had interact discussion with hospital medicine regarding patient management and she will be admitted for further evaluation and care PT OT evaluation for home safety. <Basia Dempsey MD - Last Filed: 04/24/24 23:48> Vital Signs: 04/24/24 20:14 04/24/24 21:01 04/24/24 21:31 Temperature 98.4 F Temperature Source Oral Pulse Rate 76 64 Pulse Rate [Right] 82 Respiratory Rate 16 Blood Pressure 138/89 169/80 H Blood Pressure [Right Arm] 168/87 H Blood Pressure Mean Blood Pressure Mean [Right Arm] 114 Blood Pressure Source Blood Pressure Position 02 Sat by Pulse Oximetry 97 96 93 L Oxygen Delivery Method 04/24/24 22:01 04/24/24 22:31 04/24/24 23:31 Temperature Temperature Source Pulse Rate 86 82 82 Pulse Rate [Right] Respiratory Rate Blood Pressure 146/88 H 132/74 138/68 Blood Pressure [Right Arm] Blood Pressure Mean 93 107 Blood Pressure Mean [Right Arm] Blood Pressure Source Blood Pressure Position 02 Sat by Pulse Oximetry 94 L 97 97 Oxygen Delivery Method 04/25/24 00:14 Temperature 98.1 F Temperature Source Oral Pulse Rate 82 Pulse Rate [Right] Respiratory Rate 18 Blood Pressure 138/68 Blood Pressure [Right Arm] Blood Pressure Mean Blood Pressure Mean [Right Arm] Blood Pressure Source Automatic Cuff Blood Pressure Position Sitting 02 Sat by Pulse Oximetry Oxygen Delivery Method Room Air Lab Data Lab Results 04/24/24 06:20: Urine Color Yellow, Urine Appearance Clear, Urine pH 8.0, Ur Specific [place] 1.015, Urine Protein Negative, Urine Glucose (UA) Negative, Urine Ketones Negative, Urine Blood Trace-i, Urine Nitrate Negative, Urine Bilirubin Negative, Urine Urobilinogen 0.2, Ur Leukocyte Esterase 3+ A, Urine RBC Occasional, Urine WBC 10-20, Ur Squamous Epith Cells 3-5, Urine Bacteria 1+ 04/24/24 20:48: VBG pH 7.52 H, VBG pCO2 28.7 L, VBG pO2 149.1 H, VBG HCO3 22.9 L, VBG Total CO2 23.8, VBG O2 Saturation 99.1 H, VBG Base Excess 0.1, VBG Lactic Acid 1.6 04/24/24 21:04: WBC 10.2, RBC 4.11 L, Hgb 12.5, Hct 36.4 L, MCV 88.6, MCH 30.5, MCHC 34.4, RDW 14.3, Plt Count 414, MPV 7.9, Neut % (Auto) 67.0, Lymph % (Auto) 24.1, [place] % (Auto) 5.7, Eos % (Auto) 2.2, Baso % (Auto) 1.0, Neut # (Auto) 6.8, Lymph # (Auto) 2.4, [place] # (Auto) 0.6, Eos # (Auto) 0.2, Baso # (Auto) 0.1, Sodium 140, Potassium 3.5, Chloride 108 H, Carbon Dioxide 26, Anion Gap 9.5, BUN 15, Creatinine 0.90, Estimated Creat Clear 82, Estimated GFR 63, Est GFR ( Amer) 77, Glucose 126 H, Calcium 9.0, Magnesium 2.0 D, Total Creatine Kinase 147 H, C-Reactive Protein 8.2 H, TSH 0.89, Free T4 Index 3.8 L, Thyroxine (T4) 11.1 H, T3 Uptake 34 Orders (Tests/Meds): ED MEDICATIONS Generic Name Dose Route Start Last Admin Trade Name Freq PRN Reason Stop Dose Admin Acetaminophen 650 mg 04/25/24 00:00 04/25/24 08:57 Acetaminophen 325mg Tab PO 05/25/24 00:00 650 mg Q4HP PRN Administration Fever or Mild Pain (1-3) Albuterol Sulfate 2 puff 04/25/24 01:46 Albuterol-Hfa 90mcg/Puff Inhaler 8gm 05/25/24 01:45 Q4HP PRN shortness of breath or wheezing Buspirone HCl 10 mg 04/25/24 09:00 04/25/24 14:03 Buspirone Hcl 10 Mg Tablet PO 05/25/24 08:59 10 mg TID BUDDY Administration Enoxaparin Sodium 40 mg 04/25/24 09:00 04/25/24 08:58 Enoxaparin 40mg/0.4ml Syringe SUBCUT 05/25/24 08:59 40 mg DAILY BUDDY Administration Fluticasone/Umeclidinium/Vilanterol 1 puff 04/26/24 09:00 Fluticasone/Umeclidin/Vilanter 200/62.5/25mcg Inhaler IH 05/26/24 08:59 DAILY BUDDY Furosemide 20 mg 04/26/24 09:00 Furosemide 20mg Tablet PO 05/26/24 08:59 DAILY BUDDY Gabapentin 800 mg 04/25/24 09:00 04/25/24 14:02 Gabapentin 800mg Tablet PO 05/25/24 08:59 800 mg TID BUDDY Administration Glycopyrrolate 1 mg 04/25/24 09:00 04/25/24 14:03 Glycopyrrolate 1 Mg Tablet PO 05/25/24 08:59 1 mg TID BUDDY Administration Hydroxyzine Pamoate 25 mg 04/25/24 01:46 04/25/24 08:58 Hydroxyzine Pamoate 25mg Capsule PO 05/25/24 01:45 25 mg BIDP PRN Administration Anxiety Ibuprofen 400 mg 04/25/24 00:00 Ibuprofen 400 Mg Tablet PO 05/25/24 00:00 Q6HP PRN Mild Pain (1-3) Levothyroxine Sodium 125 mcg 04/25/24 09:00 04/25/24 08:57 Levothyroxine 125mcg (0.125mg) Tab PO 05/25/24 08:59 125 mcg DAILYDM BUDDY Administration Lidocaine 1 each 04/25/24 03:00 04/25/24 03:09 Lidocaine 5% Transdermal Patch TP 05/25/24 02:59 1 each Q24H BUDDY Administration Lorazepam 0.5 mg 04/25/24 04:44 04/25/24 04:59 Lorazepam 0.5mg Tablet PO 05/25/24 04:43 0.5 mg BIDP PRN Administration Restless Leg Miscellaneous 0 unit 04/25/24 07:34 Aerochamber/Optihaler MC 05/25/24 07:33 NEEDED PRN for Use with Inhaler Nystatin 0 gm 04/25/24 09:00 04/25/24 17:43 Nystatin Topical Powder 30gm TP 05/25/24 08:59 Not Given QID BUDDY Pantoprazole Sodium 40 mg 04/25/24 21:00 Pantoprazole 40mg Tablet PO 05/25/24 20:59 HS BUDDY Ropinirole HCl 1 mg 04/25/24 09:00 04/25/24 09:12 Ropinirole 1mg Tablet PO 05/25/24 08:59 1 mg BID BUDDY Administration Tramadol HCl 50 mg 04/25/24 04:56 04/25/24 04:59 Tramadol 50mg Tablet PO 05/25/24 04:55 50 mg Q6HP PRN Administration Moderate Pain (4-6) Discontinued Medications Generic Name Dose Route Start Last Admin Trade Name Freq PRN Reason Stop Dose Admin Gabapentin 800 mg 04/25/24 00:49 04/25/24 02:59 Gabapentin 800mg Tablet PO 04/25/24 00:50 800 mg DAILY ONE Administration Gabapentin 800 mg 04/25/24 00:49 04/25/24 08:08 Gabapentin 800mg Tablet PO 04/25/24 00:50 Not Given ONCE ONE Glycopyrrolate 1 mg 04/25/24 00:50 04/25/24 03:00 Glycopyrrolate 1 Mg Tablet PO 04/25/24 00:51 Not Given DIRECTED ONE Non-Formulary Medication 1 inh 04/25/24 02:00 04/25/24 02:43 Fluticasone Furoate-Vilanterol [Breo Ellipta] IH 05/25/24 01:59 Not Given Q24H BUDDY Non-Formulary Medication 10 mg 04/25/24 09:00 Leflunomide PO 05/25/24 08:59 DAILY BUDDY Nystatin gm 04/25/24 02:00 Nystatin Topical Powder 30gm TP 05/25/24 01:59 BID BUDDY Nystatin 1 gm 04/25/24 09:00 04/25/24 02:59 Nystatin Topical Powder 30gm TP 05/25/24 08:59 1 gm QID BUDDY Administration Tramadol/Acetaminophen 1 each 04/25/24 04:44 Tramadol/Apap 37.5/325mg Tablet PO 05/25/24 04:43 Q4HP PRN pain ORDERS Category Date Time Status Consult to Case Management [CONS] Routine Cons 04/25/24 00:00 Active Shoulder XR right miminum 2 views [XR shoulder RT min Exams 04/24/24 20:55 Completed 2V] Stat BMP [Basic Metabolic Panel] Stat Lab 04/24/24 21:04 Completed CBC w/Auto Diff [Complete Blood Count Auto Diff] Stat Lab 04/24/24 21:04 Completed CK [Creatine Kinase] Stat Lab 04/24/24 21:04 Completed CRP [C-Reactive Protein] Stat Lab 04/24/24 21:04 Completed HIV (1&2) Antibody Rapid Stat Lab 04/24/24 20:54 Completed Hep C Ab with Reflex to RNA Stat Lab 04/24/24 20:54 Received Magnesium Stat Lab 04/24/24 21:04 Completed Thyroid Panel Stat Lab 04/24/24 21:04 Completed UA [Urinalysis and Microscopic] Stat Lab 04/24/24 06:20 Completed Urine Culture Stat Micro 04/24/24 06:20 Received VBG [Venous Blood Gas] Stat RT 04/24/24 20:48 Completed Medical Decision Narrative: In summary patient is a in summary patient is a 63-year-old female who presents to the emergency department for evaluation of [facility] medical complaints but primarily falling out of her wheelchair and failure to thrive. Patient is initially normotensive with a blood pressure of 168/87 pulse 82 respiratory rate of 16 satting at 97% on room air upon arrival, afebrile. Physical exam is remarkable for self-reported shoulder pain, no visible trauma noted, patient is neurovascularly intact in her bilateral upper extremities. She does have chronic muscle atrophy in her bilateral lower extremities and wears braces on her feet and utilizes a wheelchair. She does have a sacral decubitus ulcer. She has bruising/abrasion on the anterior left tibial tuberosity but no other visible trauma noted. Deep Coma Score is 15 she is awake alert and oriented and retains capacity for decision-making.. Differential diagnosis includes failure to thrive versus electrolyte derangement versus occult infection etc. Initial workup will be conducted with plain film x-rays hematologic labs. Initial interventions were considered however patient has no specific derangements other than reported pain for which we will give Tylenol. Initial workup reviewed by me reassuring as her hematologic labs and workup are unremarkable for any acute process. Upon repeat evaluation I did have interactive discussion with the patient regarding her safety. Her patient's is in [facility] with a recent BKA and seriously ill and now on dialysis. Patient reports that she has no support network other than her and does not drive. Given this I had interactive discussion with the patient's PCP Dr. Knight regarding his thoughts on the matter and he does agree that she lacks the ability to do her ADLs independently and to that end has attempted to get home health arranged for her but had been unsuccessful. Given that I had interact discussion with hospital medicine regarding patient management and she will be admitted for further evaluation and care PT OT evaluation for home safety. <Mikel Nguyễn MD - Last Filed: 04/25/24 20:47> Vital Signs: 04/24/24 20:14 04/24/24 21:01 04/24/24 21:31 Temperature 98.4 F Temperature Source Oral Pulse Rate 76 64 Pulse Rate [Right] 82 Respiratory Rate 16 Blood Pressure 138/89 169/80 H Blood Pressure [Right Arm] 168/87 H Blood Pressure Mean Blood Pressure Mean [Right Arm] 114 Blood Pressure Source Blood Pressure Position 02 Sat by Pulse Oximetry 97 96 93 L Oxygen Delivery Method 04/24/24 22:01 04/24/24 22:31 04/24/24 23:31 Temperature Temperature Source Pulse Rate 86 82 82 Pulse Rate [Right] Respiratory Rate Blood Pressure 146/88 H 132/74 138/68 Blood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
--- NOTE | 2024-04-24 20:55 | XR_ITS ---
PROCEDURE INFORMATION: Exam: XR Right Shoulder Exam date and time: 04/24/2024 9:21 PM Age: 63 years old Clinical indication: Injury or trauma; Fall; Blunt trauma (contusions or hematomas); Shoulder; Right; Additional info: Fall, R shoulder pain TECHNIQUE: Imaging protocol: Radiologic exam of the right shoulder. Views: 2 or more views. Total images: 4 COMPARISON: No relevant prior studies available. FINDINGS: Bones/joints: Osteopenia. No acute fracture, joint dislocation, or AC joint separation. Mild degenerative change glenohumeral and AC joint spaces. Enthesophytes at the greater tuberosity. Mild narrowing of the subacromial space. No concerning bone lesions. Soft tissues: Unremarkable soft tissues. IMPRESSION: 1. No acute osseous abnormality. 2. Chronic findings.
[2024-04-24 21:01] VITALS: BP 138/89; PULSE 76; O2SAT 96
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
[2024-04-24 21:13] LABS: Lactate Venous 1.6 mmol/L (0.4-2.0); VBG Base Excess 0.1 mmol/L (-2.4-2.3); VBG HCO3 22.9 mmol/L (23-30); VBG Oxygen Saturation 99.1 % (50-70); VBG PCO2 28.7 mmol/L (35-51); VBG PH 7.52 mmol/L (7.31-7.41); VBG PO2 149.1 mmol/L (28-40); VBG Total CO2 23.8 mmol/L (23-27)
[2024-04-24 21:19] LABS: Basophils # 0.1 K/mm3 (0-0.2); Eosinophils # 0.2 K/mm3 (0.0-0.4); Eosinophils % 2.2 % (0.1-12.0); Hematocrit 36.4 % (37.0-47.0); Hemoglobin 12.5 g/dL (12.2-16.2); Lymphocytes # 2.4 K/mm3 (0.7-4.5); Lymphocytes % 24.1 % (10-50); Mean Corpuscular HGB Conc 34.4 g/dL (31.8-35.4); Mean Corpuscular Hemoglobin 30.5 pg (27.0-31.2); Mean Corpuscular Volume 88.6 fl (81-99); Mean Platelet Volume 7.9 fl (7.4-10.4); Monocytes # 0.6 K/mm3 (0.1-1.0); Monocytes % 5.7 % (1.7-9.3); Neutrophils # 6.8 K/mm3 (1.8-7.8); Platelet Count 414 K/mm3 (142-424); Red Blood Count 4.11 M/mm3 (4.20-5.40); Red Cell Distribution Width 14.3 % (11.5-17.5); White Blood Count 10.2 K/mm3 (4.8-10.8)
[2024-04-24 21:30] LABS: Anion Gap 9.5 mEq/L (5-15); Blood Urea Nitrogen 15 mg/dl (7-17); Carbon Dioxide 26 mmol/L (22.0-30.0); Chloride 108 mmol/L (98-107); Creatine Kinase 147 U/L (30-135); Creatinine Clearance Estimated 82 mL/min (50-200); Estimated Glomerular Filt Rate 63 ml/min (>60); GFR (African American) 77 ML/MIN (>60); Glucose 126 mg/dl (74-100); Potassium 3.5 mmoL/L (3.5-5.1); Sodium 140 mmol/L (136-145)
[2024-04-24 21:31] VITALS: BP 169/80; PULSE 64; O2SAT 93
[2024-04-24 21:36] LABS: C-Reactive Protein 8.2 mg/L (0-4)
[2024-04-24 21:51] LABS: Free Thyroxine Index 3.8 ug/dL (5.93-13.13); T4 (Thyroxine) 11.1 ug/dl (5.53-11.0); Triiodothryronine (T3) Uptake 34 % (23.5-40.5)
[2024-04-24 22:01] VITALS: BP 146/88; PULSE 86; O2SAT 94
[2024-04-24 22:05] LABS: Thyroid Stimulating Hormone 0.89 uIU/mL (0.465-4.68)
[2024-04-24 22:31] VITALS: BP 132/74; PULSE 82; O2SAT 97
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
[2024-04-24 23:31] VITALS: BP 138/68; PULSE 82; O2SAT 97
--- NOTE | 2024-04-25 00:05 | PC.NURSE ---
Patient called and requested that I thank all the staff, including the young doctor,for the care that she received in the ER, States she was just frustrated when he wasn't listening to her.
[2024-04-25 00:14] VITALS: BP 138/68; PULSE 82; RESP 18; TEMP 36.7; O2SAT 94
--- NOTE | 2024-04-25 00:23 | PC.NURSE ---
Patient arrived to floor via stretcher from ED at 00:20.
[2024-04-25 00:36] VITALS: BMI 31.6
[2024-04-25 00:37] VITALS: BP 138/68; PULSE 82; RESP 16; TEMP 36.6; O2SAT 94
--- NOTE | 2024-04-25 02:02 | PC.NURSE ---
Addendum entered by Brittaney Mckeon RN 04/25/24 02:41: A bra was also placed to go to the barn Original Note: patient states during admission she has bedbugs at home. patient was decontaminated once in room 207. blue griffin jacket, 2 leg braces, a pair of tennis shoes, and fabric wallet was placed in a bag with a patient label and sat at ER doors - maintenance was notified to take to the barn. patient's cards and keys was locked in the room drawer. patient was very compliant and stated she was willing to proceed with our protocol, verbalizing understanding. Sprigger notified of the situation. Present was Ilya Quispe and Andrea.
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
[2024-04-25] MEDS: GABAPENTIN 800MG TABLET 800 MG PO ×4 (02:59→20:49)
[2024-04-25] MEDS: NYSTATIN TOPICAL POWDER 30GM TP ×4 (02:59→21:23)
[2024-04-25] MEDS: LIDOCAINE 5% TRANSDERMAL PATCH 1 EACH TP (03:09)
[2024-04-25 04:00] VITALS: BP 151/83; PULSE 82; RESP 18; TEMP 36.7; O2SAT 98; BMI 32.7
--- NOTE | 2024-04-25 04:45 | EXP.EVENT.NO ---
1. Unable to get patient's present restless leg medication. She reports severe restless leg with right leg pain.. Went in and talked with the patient and she has had all TRAM before and Ativan in the past without any difficulty. Will order those as a as needed medication as we have them onsite to see if we can get some relief from her restless legs tonight and help her sleep.
[2024-04-25] MEDS: TRAMADOL 50MG TABLET 50 MG PO (04:59)
[2024-04-25] MEDS: LORazepam 0.5MG TABLET 0.5 MG PO (04:59)
[2024-04-25 06:48] LABS: Microscopic, Urine URINE MICROSCOPIC (MICROSCOPIC)
[2024-04-25 06:55] LABS: Appearance,Urine CLEAR (Clear); Bilirubin,Urine Negative (Negative); Blood, Urine TRACE-I (Negative); Color,Urine YELLOW (Yellow); Glucose,Urine (UA) Negative (Negative); Ketones,Urine Negative (Negative); Leukocyte Esterase,Urine 3+ (Negative); Nitrate,Urine Negative (Negative); Protein,Urine Negative (Negative); Specific Gravity, Urine 1.015 (1.005-1.030); Urobilinogen,Urine 0.2 EU/dl (0.2)
[2024-04-25 07:26] LABS: Bacteria,Urine 1+ /lpf; RBC,Urine Occasional #/hpf (0-3)
--- NOTE | 2024-04-25 08:47 | HMH.PHAINT1 ---
Pharmacy Intervention Comments: Home medication list verified using list from outpatient pharmacy
[2024-04-25] MEDS: BUSPIRONE HCL 10 MG TABLET PO ×3 (08:57→20:49)
[2024-04-25] MEDS: GLYCOPYRROLATE 1 MG TABLET PO ×3 (08:57→20:49)
[2024-04-25] MEDS: ACETAMINOPHEN 325MG TAB 650 MG PO (08:57)
[2024-04-25] MEDS: LEVOTHYROXINE 125MCG (0.125MG) TAB 125 MCG PO (08:57)
[2024-04-25] MEDS: ENOXAPARIN 40MG/0.4ML SYRINGE 40 MG SUBCUT (08:58)
[2024-04-25] MEDS: hydrOXYzine pamoate 25MG CAPSULE 25 MG PO (08:58)
[2024-04-25 09:06] VITALS: BP 144/67; PULSE 78; RESP 15; TEMP 36.6; O2SAT 96
[2024-04-25] MEDS: ROPINIROLE 1MG TABLET 1 MG PO ×2 (09:12→20:48)
--- NOTE | 2024-04-25 09:46 | HMH.PTEV ---
Physical Therapy Evaluation Rehab PT IP Evaluation Start: 04/25/24 00:00 Freq: ONCE Status: Active Protocol: Document 04/25/24 08:43 NOAH (Rec: 04/25/24 09:45 NOAH Desktop) Subjective/History History History Per H&P: The patient who has been at [facility] today and released has come here, she says that she is unable to stand without assistance and that her caregiver is in another hospital and is going on dialysis. She has no one in the home to take care of her she falls a lot now from her wheelchair. She says if everything is set up right in which she has bars she is able to pivot from the bed to a wheelchair can go down the bathroom and use bars to get onto a toilet. But this is stopped and she is falling and having to call the ambulance. She went to the hospital at [place], but was released back home has now come here. With the goal of finding permanent placement, or to have something set up at home to where she has 24-hour day caregiver. She has no other complaints today but that has multiple medical problems with chronic pain, muscle atrophy bilateral foot drop. Subjective Subjective Pt reports she can't walk d/t breaking her femur last year and having B drop foot. Pt reports she last walked about a year ago. Pt reports she uses a w/c for mobility around the home and community. Pt reports she has her help as needed but is usually IND with transfers to and from w/c. Pt reports she has had 17 falls since March d/t episodes that cause her to collapse out of her w/c and is unable to get up from floor. Pt reports she has 5 OFE home and the first step is dry rotted. New diagnosis of cancer in past 12 No months? Rehab PT IP Eval Objective Appearance Patient Behavior Appropriate Patient Orientation Person,Situation Difficulty following instructions mild Speech Pattern Clear,Rambling Ambulation Patient Able to Ambulate No Balance Ability to Arise Able, uses arms to help Sitting Balance Steady, safe Standing Balance Unsteady Transfers Chair Transfer Ability Minimal x 1 (25% assist) Sit to Stand Bed Transfer Ability Minimal x 1 (25% assist) Rehab PT IP prob,goals,plan Problems Date of Evaluation: 04/25/24 PT IP Problems Bed Mobility,Transfers,Gait, Balance,Self care,Safety Rehab Potential Rehab Potential Good Plan PT Intervention Plan Bed Mobility,Transfers,Gait, Balance,Safety,Therapeutic Exercise Other Intervention Plan 1-2 times PT Plan Frequency Daily Duration LOS Discharge Goals Bed Transfer Ability Independent Sit to Stand Chair Transfer Ability Contact Guard/Hand Hold Discharge Plan PT Discharge Plan PT performed initial physical therapy evaluation. Pt's functional mobility is below baseline as she reports she was IND with transfers prior to admission. Pt required at most Min A and VCs for sequencing for stand-pivot transfer from EOB > recliner. Pt unable to take steps d/t drop foot (pt is at baseline with ambulation tasks/not ambulating prior). PT recommending rehabilitation placement based off of pt's current level of mobility with transfers and lack of 24/7 supervision or care at home. However, if pt is able to secure assistance/supervision at home, pt may be safe to d/c home. Eval Complexity Eval Charge Codes 74357 - High Complexity PHYSICIAN CERTIFICATION: I certify the specified therapy services for Eva Saeed are required, authorized, and reviewed every 30 days.
--- NOTE | 2024-04-25 10:57 | HMH.OTEV ---
OT Inpatient Evaluation Rehab OT IP Evaluation Start: 04/25/24 00:05 Freq: ONCE Status: Active Protocol: Document 04/25/24 10:25 BENJAMIN (Rec: 04/25/24 10:57 BENJAMIN [id number]) Rehab OT IP Assessment Subjective History The patient who has been at [facility] today and released has come here, she says that she is unable to stand without assistance and that her caregiver is in another hospital and is going on dialysis. She has no one in the home to take care of her she falls a lot now from her wheelchair. She says if everything is set up right in which she has bars she is able to pivot from the bed to a wheelchair can go down the bathroom and use bars to get onto a toilet. But this is stopped and she is falling and having to call the ambulance She went to the hospital at [place], but was released back home has now come here. With the goal of finding permanent placement, or to have something set up at home to where she has 24-hour day caregiver. She has no other complaints today but that has multiple medical problems with chronic pain, muscle atrophy bilateral foot drop. Patient lives at home alone at this time. W/c bound. However has 5-6 OFE the home. Patient reported falling up/down the steps when entering the home. is in the hosptial with medical complications. Subjective I can try to stand. Patient sitting upright in recliner at arrival of tx. Instructed Patient on proper hand and foot placement to complete sit->stand requiring Min A. Patient stood <30 secs. Requested Patient to facilitate steps while in standing place. Patient was able to perform SPT at w/c level at home. However Patient unable to perform a step and requested to feel unsafe/dizzy and requested to sit back in recliner. Objective Patient Orientation Person,Name,Age,Birthday,Year Right Upper Extremity Gross ROM WFL Left Upper Extremity Gross ROM WFL Transfer Training Sit/Stand Transfer Assist Level Minimal x 1 (25% assist) Lower Body Dressing Ability Minimal Assistance Rehab OT IP prob,goals,plan Problems Date of Evaluation: 04/25/24 OT IP Problems Bed Mobility,Transfers,Balance ,Self care,Safety Rehab Potential Rehab Potential Good Equipment Needs Assistive Devices None / NA Plan OT intervention Plan Bed Mobility,Transfers,Balance ,Self care,Safety,Therapeutic Exercise OT Plan Frequency Daily Duration LOS Discharge Goals Sit to Stand Chair Transfer Ability Contact Guard/Hand Hold Chair Transfer Ability Contact Guard/Hand Hold Chair Transfer Technique Sit to/from Ambulatory Chair Transfer Assistive Devices None Discharge Plan OT Discharge Plan Patient is w/c bound at home. Patient has a hx of falling at home. Patient relies on her to assist with her ADLs and fx'l mobility as needed. is currently hospitalized and unable to provider care for her. Patient has no family in the area to assist. Recommend placement at this time. Eval Complexity Eval Charge Codes 52070 - Low Complexity PHYSICIAN CERTIFICATION: I certify the specified therapy services for Eva Saeed are required, authorized, and reviewed every 30 days.
[2024-04-25 11:29] LABS: HIV (1&2) Antibody Rapid NONREACTIVE (NONREACTIVE)
[2024-04-25 13:18] VITALS: BMI 32.1
--- NOTE | 2024-04-25 15:58 | CARE MANAGER ---
Addendum entered by [facility] 04/28/24 12:49: Janice ahmadi/ Alex stated that patient has been accepted for services. Addendum entered by [facility] 04/28/24 11:22: I have arranged [facility] for this patient. Addendum entered by [facility] 04/28/24 10:21: Patient is agreeable to home health services and prefers [facility]. Patient information/order will be faxed to [facility] at time of discharge. Patient will discharge home this afternoon. Addendum entered by [facility] 04/28/24 09:30: Per Ariella ahmadi/ [facility] they have reviewed patient information and denied patient. Per MD patient ambulated hallway and can return home w/ home health services. I will discuss home health w/ patient this AM. Original Note: Spoke with patient regarding discharge planning this morning. Per PT/OT, patient would benefit with continued therapy @ SNF upon discharge. Patient Choice has been signed for anywhere other than [place] [facility] . I have faxed referral to [facility]. [facility] called and stated that they are reviewing.
[2024-04-25 16:20] VITALS: BP 135/63; PULSE 83; RESP 14; TEMP 36.5; O2SAT 96
--- NOTE | 2024-04-25 18:06 | PC.NURSE ---
pt has had a good day with a positive attitude. no iv, aware. pt has been up to chair at bedside multiple times t/o the day. no c/o pain in legs since resuming requip. pt requesting notebook and pencil, provided her with a small notepad, pen, and activity book, pt was very thankful and thanked all staff taking care of her. cb and personal items within reach. no needs at this time. bed alarm/chair alarm on for pt safety
[2024-04-25 19:47] VITALS: BP 140/72; PULSE 75; RESP 18; TEMP 36.5; O2SAT 96
[2024-04-25] MEDS: PANTOPRAZOLE 40MG TABLET 40 MG PO (20:49)
[2024-04-26] MEDS: LIDOCAINE 5% TRANSDERMAL PATCH 1 EACH TP (02:57)
[2024-04-26 04:00] VITALS: BP 151/80; PULSE 76; RESP 16; TEMP 36.7; O2SAT 96; BMI 31.4
--- NOTE | 2024-04-26 05:13 | PC.NURSE ---
0513: Pt. has had a good night. Pt. alert and orientated x 4. Pt. had a bath and has slept a good part of the night. Pt. has been very thankful for her care needs and has been polite to the staff. Pt. has call [facility] and personal items in reach. No c/o's pain .
[2024-04-26] MEDS: LEVOTHYROXINE 125MCG (0.125MG) TAB 125 MCG PO (06:17)
[2024-04-26 06:24] LABS: Basophils # 0.1 K/mm3 (0-0.2); Basophils % 0.9 % (0.1-2.0); Eosinophils # 0.3 K/mm3 (0.0-0.4); Eosinophils % 3.5 % (0.1-12.0); Hemoglobin 11.7 g/dL (12.2-16.2); Lymphocytes % 26.9 % (10-50); Mean Corpuscular HGB Conc 32.5 g/dL (31.8-35.4); Mean Corpuscular Hemoglobin 29.8 pg (27.0-31.2); Mean Corpuscular Volume 91.8 fl (81-99); Mean Platelet Volume 7.8 fl (7.4-10.4); Monocytes # 0.5 K/mm3 (0.1-1.0); Monocytes % 7.1 % (1.7-9.3); Neutrophils # 4.7 K/mm3 (1.8-7.8); Neutrophils % 61.7 % (37.0-80.0); Platelet Count 338 K/mm3 (142-424); Red Blood Count 3.93 M/mm3 (4.20-5.40); Red Cell Distribution Width 14.5 % (11.5-17.5); White Blood Count 7.6 K/mm3 (4.8-10.8)
[2024-04-26 06:28] LABS: Alanine Aminotransferase 17 U/L (12-78); Alkaline Phosphatase 71 U/L (38-126); Aspartate Amino Transferase 26 U/L (14-36); Bilirubin,Total 0.4 mg/dl (0.2-1.3); Blood Urea Nitrogen 14 mg/dl (7-17); Calcium 8.4 mg/dl (8.4-10.2); Carbon Dioxide 27 mmol/L (22.0-30.0); Chloride 109 mmol/L (98-107); Creatinine Clearance Estimated 80 mL/min (50-200); Estimated Glomerular Filt Rate 72 ml/min (>60); GFR (African American) 88 ML/MIN (>60); Globulin 2.9 g/dL (1.3-3.2); Glucose 102 mg/dl (74-100); Magnesium 1.9 mg/dl (1.6-2.3); Sodium 139 mmol/L (136-145); Total Protein,Serum 5.9 g/dl (6.3-8.2)
[2024-04-26] MEDS: FLUTICASONE/UMECLIDIN/VILANTER 200/62.5/25MCG INHALER 1 PUFF IH (06:43)
[2024-04-26 06:44] VITALS: O2SAT 99
[2024-04-26 08:00] VITALS: BP 130/77; PULSE 80; RESP 20; TEMP 36.8; O2SAT 97
[2024-04-26 08:22] LABS: HCV Ab Non Reactive (Non Reactive)
[2024-04-26] MEDS: hydrOXYzine pamoate 25MG CAPSULE 25 MG PO (08:47)
[2024-04-26] MEDS: GLYCOPYRROLATE 1 MG TABLET PO ×3 (08:47→20:06)
[2024-04-26] MEDS: BUSPIRONE HCL 10 MG TABLET PO ×2 (08:48→13:57)
[2024-04-26] MEDS: GABAPENTIN 800MG TABLET 800 MG PO ×3 (08:48→20:06)
[2024-04-26] MEDS: FUROSEMIDE 20MG TABLET 20 MG PO (08:48)
[2024-04-26] MEDS: ENOXAPARIN 40MG/0.4ML SYRINGE 40 MG SUBCUT (08:48)
[2024-04-26] MEDS: ROPINIROLE 1MG TABLET 1 MG PO ×2 (08:48→20:06)
[2024-04-26] MEDS: NYSTATIN TOPICAL POWDER 30GM TP ×4 (08:49→20:06)
--- NOTE | 2024-04-26 12:30 | EXP.ACUTE.PN ---
Subjective *Date: 04/26/24 *Time: 13:55 Interval history: Patient stable on room air. Tolerating p.o. intake. In bed on exam. Denies any chest pain or abdominal pain. No nausea. Awaiting placement. Interview and exam performed with Maira Bravo as whipped topping supervisor. All interactions with patient's performed in tandem with nurse. Medical Exam Vital signs and Labs for Last 24 Hours: Vital Signs Temp Pulse Resp BP Pulse Ox O2 Del Method 04/26/24 11:00 Room Air 04/26/24 09:00 Room Air 04/26/24 08:00 Room Air 04/26/24 08:00 98.2 F 80 20 130/77 97 Room Air 04/26/24 06:53 Room Air 04/26/24 06:44 99 Room Air 04/26/24 05:00 Room Air 04/26/24 04:00 98.0 F 76 16 151/80 H 96 Room Air 04/26/24 03:00 Room Air 04/26/24 01:00 Room Air 04/25/24 23:00 Room Air 04/25/24 21:00 Room Air 04/25/24 20:00 Room Air 04/25/24 19:47 97.7 F 75 18 140/72 96 Room Air 04/25/24 18:46 Room Air 04/25/24 17:00 Room Air 04/25/24 16:20 97.7 F 83 14 135/63 96 Room Air 04/25/24 15:00 Room Air 04/25/24 13:00 Room Air Intake and Output 04/25/24 04/26/24 04/26/24 23:59 07:59 15:59 Intake Total 560 / 1300 560 / 560 Output Total 0 / 800 700 / 700 Balance 560 / 500 -700 / -140 560 / -140 Intake: Intake, Oral Amount 560 / 1300 560 / 560 Output: Output, Urine Amount 0 / 800 700 / 700 Other: Number of Unmeasured Voids 0 0 Number of Urine Attends/Diapers 1 Weight 88.536 kg Patient Weight 04/26/24 23:59 Weight 88.536 kg Laboratory Results - last 24 hr 04/24/24 06:20: Urine Color Yellow, Urine Appearance Clear, Urine pH 8.0, Ur Specific Jbphh 1.015, Urine Protein Negative, Urine Glucose (UA) Negative, Urine Ketones Negative, Urine Blood Trace-i, Urine Nitrate Negative, Urine Bilirubin Negative, Urine Urobilinogen 0.2, Ur Leukocyte Esterase 3+ A, Urine RBC Occasional, Urine WBC 10-20, Ur Squamous Epith Cells 3-5, Urine Bacteria 1+ 04/25/24 06:11: Hepatitis C Antibody Non reactive 04/26/24 05:53: WBC 7.6 D, RBC 3.93 L, Hgb 11.7 L, Hct 36.0 L, MCV 91.8, MCH 29.8, MCHC 32.5, RDW 14.5, Plt Count 338, MPV 7.8, Neut % (Auto) 61.7, Lymph % (Auto) 26.9, [place] % (Auto) 7.1, Eos % (Auto) 3.5, Baso % (Auto) 0.9, Neut # (Auto) 4.7, Lymph # (Auto) 2.0, [place] # (Auto) 0.5, Eos # (Auto) 0.3, Baso # (Auto) 0.1, Sodium 139, Potassium 4.0, Chloride 109 H, Carbon Dioxide 27, Anion Gap 7.0, BUN 14, Creatinine 0.80, Estimated Creat Clear 80, Estimated GFR 72, Est GFR ( Amer) 88, Glucose 102 H, Calcium 8.4, Magnesium 1.9, Total Bilirubin 0.4, AST 26, ALT 17, Alkaline Phosphatase 71, Total Protein 5.9 L, Albumin 3.0 L, Globulin 2.9, Albumin/Globulin Ratio 1.0 L I & O for Labs for Last 24 Hours: Intake & Output 04/23/24 04/24/24 04/25/24 04/26/24 23:59 23:59 23:59 23:59 Intake Total 1300 / 1300 560 / 560 Output Total 800 / 800 700 / 700 Balance 500 / 500 -140 / -140 Weight 90.718 kg 92.44 kg 88.536 kg Microbiology Reports for the Last 24 Hours: Microbiology 04/24/24 06:20 Urine,Clean Catch Urine Culture - Preliminary Gram Negative Rods Constitutional: Present no acute distress, obese, chronically ill appearing and cooperative Head: Present atraumatic and normocephalic ENT: Present normal exam Comment:: Hirsutism Respiratory: Present normal respiratory effort; Absent rhonchi, wheezes or crackles Cardiac: Present Reg Rate and Rhythm GI: Present soft and normal bowel sounds; Absent distention or tenderness Extremities: Present normal inspection and full ROM Skin: Present intact; Absent erythema Neuro: Present Grossly Intact, alert, awake, oriented x 3 and moves all extremities Assessment and Plan *Assessment and plan (1) Adult failure to thrive: Status: Acute Category: Medical Code(s): R62.7 - Adult failure to thrive (2) UTI (urinary tract infection): Status: Acute Category: Medical Code(s): N39.0 - Urinary tract infection, site not specified (3) Ligamentum flavum hypertrophy: Status: Acute Category: Medical Code(s): M24.28 - Disorder of ligament, vertebrae (4) Chronic pain syndrome: Status: Acute Category: Medical Code(s): G89.4 - Chronic pain syndrome (5) Lumbar stenosis with neurogenic claudication: Status: Acute Category: Medical Code(s): M48.062 - Spinal stenosis, lumbar region with neurogenic claudication (6) Hypothyroidism: Status: Chronic Qualifiers: Hypothyroidism type: unspecified Qualified Code(s): E03.9 - Hypothyroidism, unspecified Category: Medical Code(s): E03.9 - Hypothyroidism, unspecified (7) Restless leg syndrome: Status: Chronic Category: Medical Code(s): G25.81 - Restless legs syndrome (8) Foot drop: Status: Acute Category: Medical Code(s): M21.379 - Foot drop, unspecified foot (9) Histrionic personality disorder: Status: Acute Category: Medical Code(s): F60.4 - Histrionic personality disorder (10) Attention seeking behavior: Status: Acute Category: Medical Code(s): R46.89 - Other symptoms and signs involving appearance and behavior (11) Self-care deficit for feeding, bathing, and toileting: Status: Acute Category: Social Hx Code(s): Z74.1 - Need for assistance with personal care Plan 63-year-old female who presents with adult failure to thrive. Discussed case with ER, request admission for evaluation for possible placement. Medicine agreed to admit for further management. Therapy is evaluated, would benefit from placement for rehab. Urine growing gram-negative rods. Will initiate antibiotics for UTI. Awaiting rehab acceptance. Problems addressed as follows: UTI -Complains of recurrent UTIs, has had some lower abdominal discomfort but improved today. Will initiate Levaquin 750 mg daily for 5 days -Urine growing gram-negative rods, speciation and sensitivity pending -White count normal at 7.6 -Repeat CBC, CMP, magnesium ordered for the morning - Kidney function remains normal with BUN 14, creatinine 0.8. Electrolytes stable with magnesium 1.9, potassium 4.0 Adult failure to thrive Self-care deficit Bilateral foot -Evaluated by therapy, patient is wheelchair dependent, necessitates help from her who is currently hospitalized. Unable to care for self. Therapy working with patient daily. Recommended rehab. Awaiting potential acceptance by facilities for discharge planning. -Participating with therapy and nursing. Chronic pain, with skin breakdown and right buttock, will continue skin care, and provide medication for discomfort including a lidocaine patch for a shoulder. Patient also noting having quite a bit of red skin probably fungal infection and has nystatin powder ordered. Continue gabapentin 800 mg 3 times a day for chronic pain along with tramadol 50 mg every 6 hours as needed Continue levothyroxine 125 mcg daily for hypothyroid Continue Ativan 0.5 mg twice daily for anxiety Continue Trelegy inhaler once daily for COPD Full code Regular diet
[2024-04-26 16:00] VITALS: BP 145/83; PULSE 80; RESP 18; TEMP 36.7; O2SAT 96
[2024-04-26] MEDS: levoFLOXacin 750 MG TABLET PO (16:54)
[2024-04-26 20:00] VITALS: BP 149/75; PULSE 83; RESP 18; TEMP 36.4; O2SAT 95
[2024-04-26] MEDS: BUSPIRONE 10 MG 1 EACH PO (20:06)
[2024-04-26] MEDS: OMEPRAZOLE 40 MG 1 EACH PO (20:07)
[2024-04-26] MEDS: TRAMADOL 50MG TABLET 50 MG PO (21:15)
[2024-04-26] MEDS: IBUPROFEN 400 MG TABLET PO (21:15)
[2024-04-26] MEDS: LORazepam 0.5MG TABLET 0.5 MG PO (21:15)
[2024-04-26] MEDS: PHENYLEPHRINE 0.5% NASAL SPRAY 15ML NS (23:39)
[2024-04-27] VITALS: BP 135/86; PULSE 87; RESP 18; TEMP 36.4; O2SAT 94
[2024-04-27] MEDS: PHENYLEPHRINE 0.5% NASAL SPRAY 15ML NS ×2 (03:14→08:11)
[2024-04-27] MEDS: LIDOCAINE 5% TRANSDERMAL PATCH 1 EACH TP (03:14)
[2024-04-27 04:00] VITALS: BP 155/80; PULSE 74; RESP 17; TEMP 36.6; O2SAT 96; BMI 31.3
[2024-04-27] MEDS: FLUTICASONE/UMECLIDIN/VILANTER 200/62.5/25MCG INHALER 1 PUFF IH (05:34)
[2024-04-27] MEDS: LEVOTHYROXINE 125MCG (0.125MG) TAB 125 MCG PO (06:00)
[2024-04-27 06:38] LABS: Basophils # 0.1 K/mm3 (0-0.2); Basophils % 0.9 % (0.1-2.0); Eosinophils # 0.2 K/mm3 (0.0-0.4); Eosinophils % 2.8 % (0.1-12.0); Hematocrit 37.2 % (37.0-47.0); Hemoglobin 12.3 g/dL (12.2-16.2); Lymphocytes # 2.2 K/mm3 (0.7-4.5); Lymphocytes % 26.2 % (10-50); Mean Corpuscular HGB Conc 33.2 g/dL (31.8-35.4); Mean Corpuscular Hemoglobin 29.9 pg (27.0-31.2); Mean Corpuscular Volume 90.1 fl (81-99); Mean Platelet Volume 7.6 fl (7.4-10.4); Monocytes # 0.6 K/mm3 (0.1-1.0); Monocytes % 6.8 % (1.7-9.3); Neutrophils # 5.4 K/mm3 (1.8-7.8); Neutrophils % 63.3 % (37.0-80.0); Platelet Count 357 K/mm3 (142-424); Red Blood Count 4.13 M/mm3 (4.20-5.40); Red Cell Distribution Width 14.5 % (11.5-17.5); White Blood Count 8.4 K/mm3 (4.8-10.8)
[2024-04-27 07:20] LABS: Albumin Level 3.3 g/dl (3.5-5.0); Chloride 106 mmol/L (98-107); Sodium 137 mmol/L (136-145)
[2024-04-27 07:23] LABS: Alanine Aminotransferase 19 U/L (12-78); Alkaline Phosphatase 83 U/L (38-126); Aspartate Amino Transferase 25 U/L (14-36); Bilirubin,Total 0.4 mg/dl (0.2-1.3); Blood Urea Nitrogen 16 mg/dl (7-17); Calcium 8.6 mg/dl (8.4-10.2); Carbon Dioxide 24 mmol/L (22.0-30.0); Creatinine Clearance Estimated 80 mL/min (50-200); Estimated Glomerular Filt Rate 56 ml/min (>60); GFR (African American) 68 ML/MIN (>60); Globulin 3.4 g/dL (1.3-3.2); Glucose 152 mg/dl (74-100); Total Protein,Serum 6.7 g/dl (6.3-8.2)
[2024-04-27 08:00] VITALS: BP 147/67; PULSE 101; RESP 20; TEMP 36.6; O2SAT 94
[2024-04-27] MEDS: NYSTATIN TOPICAL POWDER 30GM TP ×4 (08:11→20:30)
[2024-04-27] MEDS: GLYCOPYRROLATE 1 MG TABLET PO ×3 (08:12→20:30)
[2024-04-27] MEDS: ENOXAPARIN 40MG/0.4ML SYRINGE 40 MG SUBCUT (08:12)
[2024-04-27] MEDS: ROPINIROLE 1MG TABLET 1 MG PO ×2 (08:12→20:30)
[2024-04-27] MEDS: GABAPENTIN 800MG TABLET 800 MG PO ×3 (08:12→20:30)
[2024-04-27] MEDS: FUROSEMIDE 20 MG 1 EACH PO (08:13)
[2024-04-27] MEDS: BUSPIRONE 10 MG 1 EACH PO ×3 (08:13→20:30)
[2024-04-27] MEDS: OMEPRAZOLE 40 MG 1 EACH PO ×2 (08:14→20:30)
[2024-04-27 08:30] LABS: Magnesium 2.1 mg/dl (1.6-2.3)
[2024-04-27] MEDS: levoFLOXacin 750 MG TABLET PO (10:24)
[2024-04-27] MEDS: ARTIFICIAL TEARS SOLN 15ML BOTTLE OP ×2 (12:12→20:30)
[2024-04-27] MEDS: OXYMETAZOLINE NASAL SPRAY 0.05% 15ML NS ×2 (12:13→20:32)
--- NOTE | 2024-04-27 13:35 | P.PN_ITS ---
Subjective *Date: 04/27/24 *Time: 13:35 Interval history: Patient stable on room air. Tolerating p.o. intake. In bedside chair on exam. Complaining of nasal congestion and itchy left eye. Otherwise stable on room air. Denies any chest pain or abdominal pain. No nausea. Awaiting placement. Interview and exam performed with Maira Bravo And bedside nurse Yecenia as manager diabetes's. All interactions with patient's performed in tandem with nurse. Medical Exam Vital signs and Labs for Last 24 Hours: Vital Signs Temp Pulse Resp BP Pulse Ox O2 Del Method 04/27/24 11:00 Room Air 04/27/24 09:00 Room Air 04/27/24 08:00 97.8 F 101 H 20 147/67 H 94 L Room Air 04/27/24 08:00 Room Air 04/27/24 06:36 Room Air 04/27/24 05:00 Room Air 04/27/24 04:00 97.8 F 74 17 155/80 H 96 Room Air 04/27/24 02:51 Room Air 04/27/24 01:00 Room Air 04/27/24 00:00 97.6 F 87 18 135/86 94 L Room Air 04/26/24 23:00 Room Air 04/26/24 21:00 Room Air 04/26/24 20:06 Room Air 04/26/24 20:00 97.6 F 83 18 149/75 H 95 Room Air 04/26/24 18:25 Room Air 04/26/24 17:00 Room Air 04/26/24 16:00 98.0 F 80 18 145/83 H 96 Room Air 04/26/24 15:00 Room Air Intake and Output 04/26/24 04/27/24 04/27/24 23:59 07:59 15:59 Intake Total 240 / 1280 300 / 300 Output Total 275 / 975 0 / 0 0 / 0 Balance -35 / 305 0 / 300 300 / 300 Intake: Intake, Oral Amount 240 / 1280 300 / 300 Output: Output, Urine Amount 275 / 975 0 / 0 0 / 0 Other: Number of Unmeasured Voids 1 1 1 Number of Bowel Movements 1 Weight 88.37 kg Patient Weight 04/27/24 23:59 Weight 88.37 kg Laboratory Results - last 24 hr 04/27/24 06:16: WBC 8.4, RBC 4.13 L, Hgb 12.3, Hct 37.2, MCV 90.1, MCH 29.9, MCHC 33.2, RDW 14.5, Plt Count 357, MPV 7.6, Neut % (Auto) 63.3, Lymph % (Auto) 26.2, [place] % (Auto) 6.8, Eos % (Auto) 2.8, Baso % (Auto) 0.9, Neut # (Auto) 5.4, Lymph # (Auto) 2.2, [place] # (Auto) 0.6, Eos # (Auto) 0.2, Baso # (Auto) 0.1, Sodium 137, Potassium 4.0, Chloride 106, Carbon Dioxide 24, Anion Gap 11.0, BUN 16, Creatinine 1.00 D, Estimated Creat Clear 80, Estimated GFR 56 L, Est GFR ( Amer) 68 D, Glucose 152 H, Calcium 8.6, Magnesium 2.1 D, Total Bilirubin 0.4, AST 25, ALT 19, Alkaline Phosphatase 83, Total Protein 6.7, Albumin 3.3 L, Globulin 3.4 H, Albumin/Globulin Ratio 1.0 L I & O for Labs for Last 24 Hours: Intake & Output 04/24/24 04/25/24 04/26/24 04/27/24 23:59 23:59 23:59 23:59 Intake Total 1300 / 1300 1280 / 1280 300 / 300 Output Total 800 / 800 975 / 975 0 / 0 Balance 500 / 500 305 / 305 300 / 300 Weight 90.718 kg 92.44 kg 88.536 kg 88.37 kg Microbiology Reports for the Last 24 Hours: Microbiology 04/24/24 06:20 Urine,Clean Catch Urine Culture - Final Escherichia coli Constitutional: Present no acute distress, obese, chronically ill appearing and cooperative Head: Present atraumatic and normocephalic ENT: Present normal exam Comment:: Hirsutism Respiratory: Present normal respiratory effort; Absent rhonchi, wheezes or crackles Cardiac: Present Reg Rate and Rhythm GI: Present soft and normal bowel sounds; Absent distention or tenderness Extremities: Present normal inspection and full ROM Skin: Present intact; Absent erythema Comment:: Wound on right buttock, stage II decubitus wound approximately 1 cm wide and 3 cm long. Neuro: Present Grossly Intact, alert, awake, oriented x 3 and moves all extremities Assessment and Plan *Assessment and plan (1) Adult failure to thrive: Status: Acute Category: Medical Code(s): R62.7 - Adult failure to thrive (2) UTI (urinary tract infection): Status: Acute Category: Medical Code(s): N39.0 - Urinary tract infection, site not specified (3) Ligamentum flavum hypertrophy: Status: Acute Category: Medical Code(s): M24.28 - Disorder of ligament, vertebrae (4) Chronic pain syndrome: Status: Acute Category: Medical Code(s): G89.4 - Chronic pain syndrome (5) Lumbar stenosis with neurogenic claudication: Status: Acute Category: Medical Code(s): M48.062 - Spinal stenosis, lumbar region with neurogenic claudication (6) Hypothyroidism: Status: Chronic Qualifiers: Hypothyroidism type: unspecified Qualified Code(s): E03.9 - Hypothyroidism, unspecified Category: Medical Code(s): E03.9 - Hypothyroidism, unspecified (7) Restless leg syndrome: Status: Chronic Category: Medical Code(s): G25.81 - Restless legs syndrome (8) Foot drop: Status: Acute Category: Medical Code(s): M21.379 - Foot drop, unspecified foot (9) Histrionic personality disorder: Status: Acute Category: Medical Code(s): F60.4 - Histrionic personality disorder (10) Attention seeking behavior: Status: Acute Category: Medical Code(s): R46.89 - Other symptoms and signs involving appearance and behavior (11) Self-care deficit for feeding, bathing, and toileting: Status: Acute Category: Social Hx Code(s): Z74.1 - Need for assistance with personal care Plan 63-year-old female who presents with adult failure to thrive. Discussed case with ER, request admission for evaluation for possible placement. Medicine agreed to admit for further management. Therapy has evaluated, would benefit from placement for rehab. Awaiting rehab acceptance. Patient overall doing well. Working with therapy. If unable to find placement, discussed discharging home with home health, patient states comfort with this plan. Problems addressed as follows: UTI -Complains of recurrent UTIs, has had some lower abdominal discomfort but improved today. -Urine culture growing Pansensitive E. coli. Continue Levaquin 750 mg daily -White count normal at 8.4 -lab holiday in the - Kidney function remains normal with BUN 16, creatinine 1. Potassium 4.0 Adult failure to thrive Self-care deficit Bilateral foot -Evaluated by therapy, patient is wheelchair dependent, necessitates help from her who is currently hospitalized. Unable to care for self. Therapy working with patient daily. Recommended rehab. Awaiting potential acceptance by facilities for discharge planning. -Participating with therapy and nursing. -Decubitus wound on right gluteus. Present on admission. Currently has silicone pad for protection. Counseled on offloading that side. Patient states understanding. Initiated on Afrin nasal spray for congestion twice daily and lubricating eyedrops for itchy left eye. Chronic pain, with skin breakdown and right buttock, will continue skin care, and provide medication for discomfort including a lidocaine patch for a shoulder. Patient also noting having quite a bit of red skin probably fungal infection and has nystatin powder ordered. Continue gabapentin 800 mg 3 times a day for chronic pain along with tramadol 50 mg every 6 hours as needed Continue levothyroxine 125 mcg daily for hypothyroid Continue Ativan 0.5 mg twice daily for anxiety Continue Trelegy inhaler once daily for COPD Full code Regular diet
[2024-04-27 15:49] VITALS: BP 157/89; PULSE 75; RESP 21; TEMP 36.9; O2SAT 96
--- NOTE | 2024-04-27 16:49 | PC.NURSE ---
pt currently resting supine in bed with personal belongings in reach. pt has been up to the chair numerous times and has worked with PT. pt was given walker and can independently ambulate to the bathroom with standby assistance. pt tolerating RA w/ sats >90%. pt does not have IV access, MD aware. pt has tolerated regular diet well and has had adequate PO intake. pt started on PRN eye drops and nasal spray as requested. nystatin powder applied to excoriation in abdominal folds, as well as pillowcase to wick moisture. pressure on rt buttock covered with foam dressing- MD assessed this shift. pt has no complaints at this time. call light within reach. bed in low and locked position.
[2024-04-27 20:00] VITALS: BP 135/72; PULSE 73; RESP 16; TEMP 37; O2SAT 95
[2024-04-27] MEDS: IBUPROFEN 400 MG TABLET PO (20:34)
[2024-04-28] VITALS: BP 146/79; PULSE 71; RESP 16; TEMP 36.6; O2SAT 96
[2024-04-28] MEDS: LIDOCAINE 5% TRANSDERMAL PATCH 1 EACH TP (03:39)
[2024-04-28 04:00] VITALS: BP 123/68; PULSE 76; RESP 20; TEMP 36.6; O2SAT 96; BMI 32.3
[2024-04-28] MEDS: LEVOTHYROXINE 125MCG (0.125MG) TAB 125 MCG PO (05:59)
[2024-04-28] MEDS: FLUTICASONE/UMECLIDIN/VILANTER 200/62.5/25MCG INHALER 1 PUFF IH (06:22)
[2024-04-28 08:00] VITALS: BP 115/60; PULSE 80; RESP 18; TEMP 36.7; O2SAT 97
[2024-04-28] MEDS: ENOXAPARIN 40MG/0.4ML SYRINGE 40 MG SUBCUT (09:11)
[2024-04-28] MEDS: NYSTATIN TOPICAL POWDER 30GM TP (09:12)
[2024-04-28] MEDS: OMEPRAZOLE 40 MG 1 EACH PO (09:12)
[2024-04-28] MEDS: BUSPIRONE 10 MG 1 EACH PO (09:13)
[2024-04-28] MEDS: FUROSEMIDE 20 MG 1 EACH PO (09:13)
[2024-04-28] MEDS: ROPINIROLE 1MG TABLET 1 MG PO (09:14)
[2024-04-28] MEDS: GABAPENTIN 800MG TABLET 800 MG PO (09:14)
[2024-04-28] MEDS: GLYCOPYRROLATE 1 MG TABLET PO (09:14)
--- NOTE | 2024-04-28 09:51 | EXP.DC.SUM ---
General Admission date:: 04/25/24 Discharge date: 04/28/24 HPI HPI HPI: The patient who has been at [facility] today and released has come here, she says that she is unable to stand without assistance and that her caregiver is in another hospital and is going on dialysis. She has no one in the home to take care of her she falls a lot now from her wheelchair. She says if everything is set up right in which she has bars she is able to pivot from the bed to a wheelchair can go down the bathroom and use bars to get onto a toilet. But this is stopped and she is falling and having to call the ambulance She went to the hospital at [facility], but was released back home has now come here. With the goal of finding permanent placement, or to have something set up at home to where she has 24-hour day caregiver. She has no other complaints today but that has multiple medical problems with chronic pain, muscle atrophy bilateral foot drop. Hospital Course Hospital Course Hospital Course: 63-year-old female who presents with adult failure to thrive. Discussed case with ER, request admission for evaluation for possible placement. Medicine agreed to admit for further management. Therapy has evaluated, would benefit from placement for rehab however on further evaluation after awaiting possible acceptance to rehab, patient is shown improvement in her mobility. Able to walk the [place] with a walker standby assist. Patient states she is comfortable going home with home health. Given her improvement, will discharge home with antibiotics for UTI. Home health ordered. Problems addressed as follows: UTI -Complains of recurrent UTIs, has had some lower abdominal discomfort, improved with treatment. Urine growing pansensitive E. coli. Will treat for 5 days with levofloxacin 750 mg daily. White count normal. Kidney function normal during admission. Adult failure to thrive Self-care deficit Bilateral foot -Evaluated by therapy, patient uses wheelchair and walker at home. Usually gets all from her . He is unfortunately sick at this time and unable to care for. Initially recommended placement. Patient however worked with therapy during admission and improved and was able to ambulate with walker independently over 100 feet. Stable to discharge home with home health. Patient states comfort with this plan. -Decubitus wound on right gluteus. Present on admission. Currently has silicone pad for protection. Counseled on offloading that side. Patient states understanding. Candidal infection of skin fold: Continue nystatin powder Continue gabapentin 800 mg 3 times a day for chronic pain along with tramadol 50 mg every 6 hours as needed Continue levothyroxine 125 mcg daily for hypothyroid Continue Ativan 0.5 mg twice daily for anxiety Continue Trelegy inhaler once daily for COPD Total time spent on discharge 32 minutes in counseling, documentation, chart review, and direct care with patient. Exam Data for Last 24 hours Vital signs and Labs for Last 24 Hours: Temp Pulse Resp BP Pulse Ox O2 Del Method 98.1 F 80 18 115/60 97 Room Air 04/28/24 08:00 04/28/24 08:00 04/28/24 08:00 04/28/24 08:00 04/28/24 08:00 04/28/24 08:00 I & O for Last 24 hours: Intake & Output 04/25/24 04/26/24 04/27/24 04/28/24 23:59 23:59 23:59 23:59 Intake Total 1300 / 1300 1280 / 1280 860 / 860 240 / 240 Output Total 800 / 800 975 / 975 0 / 0 0 / 0 Balance 500 / 500 305 / 305 860 / 860 240 / 240 Weight 92.44 kg 88.536 kg 88.37 kg 91.2 kg Microbiology Reports for the Last 24 Hours: Microbiology 04/24/24 06:20 Urine,Clean Catch Urine Culture - Final Escherichia coli Constitutional Constitutional: no acute distress, obese, chronically ill appearing and cooperative *Routine HEENT Exam Head: Present normocephalic Eye: Present EOMI and PERRL ENT: Present mucous membranes moist Comments: hirsutism *Routine Neck Exam Neck: Present supple; Absent lymphadenopathy *Routine Respiratory Exam Respiratory: Present CTA bilaterally; Absent rhonchi, wheezes or crackles *Routine Cardiovascular Exam Cardiovascular: Present RRR *Routine Abdominal Exam Abdominal: Present soft and normoactive bowel sounds; Absent tenderness *Routine Rectal Exam Patient deferred: visual exam *Routine Exam Patient deferred: external exam *Routine Extremities Exam Extremities: Absent cyanosis, clubbing or edema *Routine Skin Exam Skin: Present intact and warm; Absent rash Comments: 1 cm x 3 cm decubitus wound right gluteus, clean base *Routine Neurological Exam Neurological: Present alert, oriented X3 and moving all extremities; Absent altered mental status Comments: Foot drop bilaterally, DS: Diagnosis Discharge Diagnosis (1) Adult failure to thrive: Status: Acute Code(s): R62.7 - Adult failure to thrive (2) UTI (urinary tract infection): Status: Acute Code(s): N39.0 - Urinary tract infection, site not specified (3) Ligamentum flavum hypertrophy: Status: Acute Code(s): M24.28 - Disorder of ligament, vertebrae (4) Chronic pain syndrome: Status: Acute Code(s): G89.4 - Chronic pain syndrome (5) Lumbar stenosis with neurogenic claudication: Status: Acute Code(s): M48.062 - Spinal stenosis, lumbar region with neurogenic claudication (6) Hypothyroidism: Status: Chronic Code(s): E03.9 - Hypothyroidism, unspecified Qualifiers: Hypothyroidism type: unspecified Qualified Code(s): E03.9 - Hypothyroidism, unspecified (7) Restless leg syndrome: Status: Chronic Code(s): G25.81 - Restless legs syndrome (8) Foot drop: Status: Acute Code(s): M21.379 - Foot drop, unspecified foot (9) Histrionic personality disorder: Status: Acute Code(s): F60.4 - Histrionic personality disorder (10) Attention seeking behavior: Status: Acute Code(s): R46.89 - Other symptoms and signs involving appearance and behavior (11) Self-care deficit for feeding, bathing, and toileting: Status: Acute Code(s): Z74.1 - Need for assistance with personal care Meds Home Medications and Allergies Home Medications ?Medication ?Instructions ?Recorded ?Confirmed ?Type albuterol sulfate 90 mcg/actuation 2 puff inhalation Q4-6H PRN 09/24/23 04/25/24 Rx aerosol inhaler shortness of breath or wheezing #8.5 grams fluticasone furoate 200 1 inh inhalation Q24H 09/24/23 04/25/24 History mcg-vilanterol 25 mcg/dose inhalation powder (Breo Ellipta) levothyroxine 125 mcg tablet 125 mcg PO DAILY 30 days #30 tabs 01/15/24 04/25/24 Rx acetaminophen 300 mg-codeine 30 mg 1 tab PO BID PRN pain #60 tabs 01/24/24 04/25/24 Rx tablet buspirone 10 mg tablet 10 mg PO TID #90 tabs 03/06/24 04/25/24 Rx gabapentin 800 mg tablet 800 mg PO TID #90 tabs 03/14/24 04/25/24 Rx ropinirole 1 mg tablet 1 mg PO TID #90 tabs 03/17/24 04/25/24 Rx omeprazole 40 mg capsule,delayed 40 mg PO BID 90 days #180 caps 04/07/24 04/25/24 Rx release furosemide 20 mg tablet (Lasix) 20 mg PO DAILY #30 tabs 04/23/24 04/25/24 Rx amitriptyline 50 mg tablet 50 mg PO HS 04/25/24 04/25/24 History lidocaine 4 % topical patch 1 patch topical DAILY PRN shoulder 04/25/24 04/25/24 History (Salonpas (lidocaine)) pain oxybutynin chloride 10 mg 10 mg PO HS 04/25/24 04/25/24 History tablet,extended release 24 hr levofloxacin 750 mg tablet 750 mg PO 1100 3 days #3 tabs 04/28/24 Rx nystatin 100,000 unit/gram topical 1 applic topical QID 10 days #60 04/28/24 Rx powder grams New Prescriptions to Start Prescriptions: Tuan Cheng nystatin Tuan Begum Allergies Allergy/AdvReac Type Severity Reaction Status Date / Time Sulfa (Sulfonamide Allergy Intermediate Verified 04/22/24 14:26 Antibiotics) morphine Allergy Mild Verified 04/22/24 14:26 aspartame Allergy Verified 04/22/24 14:26 [From Nutrasweet Aspartame] erythromycin base Allergy Verified 04/22/24 14:26 phenylalanine Allergy Verified 04/22/24 14:26 Discharge Plan Disposition Patient Disposition: Home Health Service Condition: Fair Discharge Order Discharge Orders: Discharge Order (Routine); Ordered 04/28/24 Ordered By: Tuan Begum Follow up Plan Follow up with: Moises Knight MD [Primary Care Provider] - 05/07/24 11:00 am Prescriptions/Medication Reconciliation: New nystatin 100,000 unit/gram Powder 1 applic topical QID 10 Days Qty: 60 0RF levofloxacin 750 mg Tablet 750 mg PO 1100 3 Days Qty: 3 0RF Continued fluticasone furoate-vilanterol [Breo Ellipta] 200-25 mcg/dose blister with device 1 inh inhalation Q24H albuterol sulfate 90 mcg/actuation HFA aerosol inhaler 2 puff inhalation Q4-6H PRN (Reason: shortness of breath or wheezing) Qty: 8.5 3RF levothyroxine 125 mcg tablet 125 mcg PO DAILY 30 Days Qty: 30 2RF buspirone 10 mg tablet 10 mg PO TID Qty: 90 2RF gabapentin 800 mg tablet 800 mg PO TID Qty: 90 3RF ropinirole 1 mg tablet 1 mg PO TID Qty: 90 3RF omeprazole 40 mg capsule,delayed release(DR/EC) 40 mg PO BID 90 Days Qty: 180 0RF furosemide [Lasix] 20 mg tablet 20 mg PO DAILY Qty: 30 2RF acetaminophen-codeine 300-30 mg tablet 1 tab PO BID PRN (Reason: pain) Qty: 60 0RF lidocaine [Salonpas (lidocaine)] 4 % Adhesive Patch,Medicated 1 patch TOPICAL DAILY PRN (Reason: shoulder pain) oxybutynin chloride 10 mg tablet extended release 24hr 10 mg PO HS amitriptyline 50 mg tablet 50 mg PO HS Patient Comments: TAKE 1 TABLET BY MOUTH EVERY NIGHT AT BEDTIME Discontinued nystatin 100,000 unit/gram powder 1 applic topical BID Qty: 60 5RF Problem Reconciliation Problems Reviewed?: Yes Patient Discharge Instructions ACTIVITY: Continue current activity and Ambulate as tolerated DIET: continue same diet Patient Instructions: DI for Failure to Thrive Print Language: British Providers Primary Care Provider: Moises Knight Admit Provider: Tuan Begum Attending Provider: Tuan Begum
[2024-04-28] MEDS: levoFLOXacin 750 MG TABLET PO (11:02)
--- NOTE | 2024-04-29 15:32 | CARE MANAGER ---
Patient contacted care management to praise the wonderful care she got while here. She did have concerns related to doctors and therapy speaking in terms she could understand and I will share that with the team. She has her medications and denies any questions at this time. DEREK Oquendo
== END 2024-04-28 13:25 | disposition home health service (06) ==
LOC: ER 23:27 → 2ND 04-25 00:25
PROVIDERS: Physician Assistant; Admitting Provider Internal Medicine Adolescent Medicine; Emergency Provider Emergency Medicine; PCP Family Medicine; Visit Provider Internal Medicine Adolescent Medicine
DX: R62.7 Adult failure to thrive (principal); M24.28 Disorder of ligament, vertebrae; G89.4 Chronic pain syndrome; M48.062 Spinal stenosis, lumbar region with neurogenic claudication; E03.9 Hypothyroidism, unspecified; G25.81 Restless legs syndrome; M21.379 Foot drop, unspecified foot; F60.4 Histrionic personality disorder; Z74.1 Need for assistance with personal care; N39.0 Urinary tract infection, site not specified; R29.6 Repeated falls; Z79.899 Other long term (current) drug therapy; Z60.2 Problems related to living alone; J44.9 Chronic obstructive pulmonary disease, unspecified; W05.0XXA Fall from non-moving wheelchair, initial encounter; Z91.81 History of falling; Y92.019 Unspecified place in single-family (private) house as the place of occurrence of the external cause
CPT/HCPCS: 36415; 73030; 80048; 80053; 81001; 82550; 82803; 83735; 84436; 84443; 84479; 85025; 86140; 86803; 87086; 87088; 87186; 87389; 94640; 97110; 97163; 97165; 97530; 99285; G0378; J1650

== ENCOUNTER 2024-04-29 11:22 | Emergency (ER) | payer MEDICARE, MEDICAID, SELFPAY ==
[2024-04-29 11:23] VITALS: BP 129/71; PULSE 90; RESP 20; TEMP 37.1; O2SAT 98; BMI 31.3
--- NOTE | 2024-04-29 11:23 | PC.NURSE ---
DR MARC AND RN X 2 AT BEDSIDE
[2024-04-29 11:30] VITALS: BP 126/77; PULSE 87; O2SAT 95
--- NOTE | 2024-04-29 11:31 | ECG_ITS ---
APPROVED REPORT Exam: Resting ECG HR:87 bpm ECG Measurements Heart Rate 87 AXES MO 273 P 266 QRSd 120 QRS -57 QT 383 T 96 QTc 427 Conclusion SINUS RHYTHM WITH FIRST DEGREE AV BLOCK LEFT ANTERIOR FASCICULAR BLOCK [QRS AXIS <= -45, QR IN I, RS IN II] LEFT VENTRICULAR HYPERTROPHY AND ST-T CHANGE [VOLTAGE CRITERIA PLUS ST/T ABNORMALITY] POSSIBLE SEPTAL MYOCARDIAL INFARCTION , PROBABLY OLD [30 ms Q WAVE IN V1/V2] POSSIBLE LATERAL MYOCARDIAL INFARCTION , OF INDETERMINATE AGE [30 ms Q WAVE IN I/aVL/V5/V6] Electronically signed by : KOKO MARC, 04/30/2024 08:17:16
--- NOTE | 2024-04-29 11:41 | XR_ITS ---
PROCEDURE INFORMATION: Exam: XR Chest Exam date and time: 04/29/2024 12:06 PM Age: 63 years old Clinical indication: Pain; Angina pectoris; Additional info: Cp, nonradiating TECHNIQUE: Imaging protocol: Radiologic exam of the chest. Views: 1 view. COMPARISON: CR XR SHOULDER RT MIN 2V 04/24/2024 9:21 PM FINDINGS: Lungs: Mild prominence of the interstitial markings at the left lung base. Findings may reflect atelectasis. Could not exclude a developing interstitial pneumonitis. Pleural spaces: Unremarkable. No pleural effusion. No pneumothorax. Heart/Mediastinum: Unremarkable. No cardiomegaly. Bones/joints: Unremarkable. IMPRESSION: Mild prominence of the interstitial markings at the left lung base. Findings may reflect atelectasis. Could not exclude a developing interstitial pneumonitis.
--- NOTE | 2024-04-29 11:53 | ED_ITS ---
Discharge Plan Disposition Patient Disposition: Home, Self-Care Chief Complaint: Dizziness Prescriptions Prescriptions: No Action fluticasone furoate-vilanterol [Breo Ellipta] 200-25 mcg/dose blister with device 1 inh inhalation Q24H albuterol sulfate 90 mcg/actuation HFA aerosol inhaler 2 puff inhalation Q4-6H PRN (Reason: shortness of breath or wheezing) Qty: 8.5 3RF levothyroxine 125 mcg tablet 125 mcg PO DAILY 30 Days Qty: 30 2RF buspirone 10 mg tablet 10 mg PO TID Qty: 90 2RF gabapentin 800 mg tablet 800 mg PO TID Qty: 90 3RF ropinirole 1 mg tablet 1 mg PO TID Qty: 90 3RF omeprazole 40 mg capsule,delayed release(DR/EC) 40 mg PO BID 90 Days Qty: 180 0RF furosemide [Lasix] 20 mg tablet 20 mg PO DAILY Qty: 30 2RF acetaminophen-codeine 300-30 mg tablet 1 tab PO BID PRN (Reason: pain) Qty: 60 0RF lidocaine [Salonpas (lidocaine)] 4 % Adhesive Patch,Medicated 1 patch TOPICAL DAILY PRN (Reason: shoulder pain) oxybutynin chloride 10 mg tablet extended release 24hr 10 mg PO HS amitriptyline 50 mg tablet 50 mg PO HS Patient Comments: TAKE 1 TABLET BY MOUTH EVERY NIGHT AT BEDTIME nystatin 100,000 unit/gram Powder 1 applic topical QID 10 Days Qty: 60 0RF levofloxacin 750 mg Tablet 750 mg PO 1100 3 Days Qty: 3 0RF Referrals Follow up/Referrals: Moises Knight MD [Primary Care Provider] - See instructions Activity Restrictions/Add. Instructions Additional Instructions/Restrictions: Call your family doctor to establish care for this visit to the emergency department and schedule follow-up within 48 hours to ensure improvement. If you have any worsening of your condition or any other concerning signs or symptoms, return to the emergency department or your primary care doctor for further evaluation. Clinical Impressions Clinical Impression: Vomiting Print Language Print Language: Thai Discharge ED Provider: Mikel Nguyễn General Adult HPI General Chief complaint: Dizziness Stated complaint: Weakness Time Seen by Provider: 04/29/24 11:31 Mode of Arrival: EMS Source of Information: Patient and EMS Limitations: No Limitations Description of Symptoms (Recalled from ER Triage Doc. by RN): per ems she has been seen several times for variety of cc, today she is here for dizziness that started this morning while getting and ready for the day as well as nausea and some chest pain History of Present Illness HPI narrative: Please note that above description of symptoms, in this electronic medical record under categorization of recalled from ER triage doctor by RN are reflective of an initial nursing assessment, however, is not reflective of my full history and physical exam that was personally taken and clarified. Consequentially, this preceding description of symptoms, which may include the patient's categorized chief complaint in the EMR, do not reflect my personal clinical impression, and the ultimate description of history of present illness and patient stated complaints should be deferred to this section of the note. Unless stated otherwise or congruent with this section of the note, additional signs, symptoms, or incongruence should be interpreted as inaccurate with my clinical impression. Related Data Home Medications ?Medication ?Instructions ?Recorded ?Confirmed fluticasone furoate 200 1 inh inhalation Q24H 09/24/23 04/25/24 mcg-vilanterol 25 mcg/dose inhalation powder (Breo Ellipta) amitriptyline 50 mg tablet 50 mg PO HS 04/25/24 04/25/24 lidocaine 4 % topical patch 1 patch topical DAILY PRN shoulder 04/25/24 04/25/24 (Salonpas (lidocaine)) pain oxybutynin chloride 10 mg 10 mg PO HS 04/25/24 04/25/24 tablet,extended release 24 hr Previous Rx's ?Medication ?Instructions ?Recorded albuterol sulfate 90 mcg/actuation 2 puff inhalation Q4-6H PRN 09/24/23 aerosol inhaler shortness of breath or wheezing #8.5 grams levothyroxine 125 mcg tablet 125 mcg PO DAILY 30 days #30 tabs 01/15/24 acetaminophen 300 mg-codeine 30 mg 1 tab PO BID PRN pain #60 tabs 01/24/24 tablet buspirone 10 mg tablet 10 mg PO TID #90 tabs 03/06/24 gabapentin 800 mg tablet 800 mg PO TID #90 tabs 03/14/24 ropinirole 1 mg tablet 1 mg PO TID #90 tabs 03/17/24 omeprazole 40 mg capsule,delayed 40 mg PO BID 90 days #180 caps 04/07/24 release furosemide 20 mg tablet (Lasix) 20 mg PO DAILY #30 tabs 04/23/24 levofloxacin 750 mg tablet 750 mg PO 1100 3 days #3 tabs 04/28/24 nystatin 100,000 unit/gram topical 1 applic topical QID 10 days #60 04/28/24 powder grams Allergies Allergy/AdvReac Type Severity Reaction Status Date / Time Sulfa (Sulfonamide Allergy Intermediate Verified 04/22/24 14:26 Antibiotics) morphine Allergy Mild Verified 04/22/24 14:26 aspartame Allergy Verified 04/22/24 14:26 [From Nutrasweet Aspartame] erythromycin base Allergy Verified 04/22/24 14:26 phenylalanine Allergy Verified 04/22/24 14:26 [facility] Disclaimer: The information contained in this section may have been updated after the patient was seen, as this information can be updated by other users. Medical History YANA (obstructive sleep apnea) Hiatal hernia Incontinence Insomnia Lung mass Family history of sarcoidosis Colon cancer screening Vitamin B12 deficiency Shortness of Breath Apneic episode Psoriatic arthritis Esophageal spasm Vertigo Kang's esophagus with esophagitis Anxiety Fibromyalgia GERD (gastroesophageal reflux disease) Hypothyroidism Restless leg syndrome Anxiety and depression Foot drop Mini stroke Psoriatic arthritis Restless leg syndrome Surgical History History of bariatric surgery H/O: hysterectomy H/O hernia repair History of bilateral knee replacement Femur fracture H/O gastric sleeve Hx of appendectomy History of cholecystectomy Family History Other Unknown family medical history Social History Smoking Status: Never smoker alcohol intake: never substance use type: denies use current occupational status: other Travel in the last 8 weeks: None number of children: 2 Other Medical History Have you received the Flu Vaccine for this season: No Have you received the Pneumonia Vaccine: No ROS Obtained: Yes All systems reviewed & no additional complaints except as documented Physical Exam General General appearance: alert Head Head exam: atraumatic and normocephalic Eye Eye exam: Present normal appearance, PERRL and EOMI Neck Neck exam: Present normal inspection, full ROM and trachea midline Respiratory Respiratory exam: Present normal lung sounds bilaterally; Absent respiratory distress, wheezes, stridor, accessory muscle use or prolonged expiratory phase Cardiovascular Cardiovascular exam: Present regular rate, normal rhythm and other (Pulses equal symmetric in upper and lower extremities) Abdominal Exam Abdominal exam: Present soft; Absent distention, tenderness or pulsatile mass Extremities Exam Extremities exam: Absent edema Neurological Exam Neurological exam: Present alert, oriented X3 and CN II-XII intact; Absent motor sensory deficit Skin Skin exam: Present warm and dry; Absent diaphoresis or erythema Medical Decision Making Medical Records Medical records reviewed: Yes I reviewed the patient's medical records. Screening: Per USPSTF and CDC recommendations, given the prevalence of disease in our region, it is our hospital?s policy to screen for HIV and viral Hepatitis for all patients aged 18 and over and those with ongoing risk factors. Omar Inquiry Pt receiving controlled substance: No Omar was queried for this patient: No Vital Signs: 04/29/24 11:23 04/29/24 11:30 04/29/24 12:01 Temperature 98.8 F Temperature Source Oral Pulse Rate 87 84 Pulse Rate [Left Radial] 90 Respiratory Rate 20 Blood Pressure 126/77 121/72 Blood Pressure [Right Arm] 129/71 Blood Pressure Mean [Right Arm] 90 02 Sat by Pulse Oximetry 98 95 95 Oxygen Delivery Method Room Air Lab Data Lab Results 04/29/24 12:05: WBC 12.5 H D, RBC 4.50, Hgb 13.6, Hct 40.4, MCV 89.8, MCH 30.3, MCHC 33.7, RDW 14.6, Plt Count 397, MPV 7.8, Neut % (Auto) 80.2 H, Lymph % (Auto) 12.1, Garvin % (Auto) 5.0, Eos % (Auto) 2.0, Baso % (Auto) 0.8, Neut # (Auto) 10.0 H, Lymph # (Auto) 1.5, Garvin # (Auto) 0.6, Eos # (Auto) 0.3, Baso # (Auto) 0.1, PT 11.1, INR 0.99, APTT 26.2, Sodium 139, Potassium 3.9, Chloride 105, Carbon Dioxide 24, Anion Gap 13.9, BUN 17, Creatinine 1.00, Estimated Creat Clear 80, Estimated GFR 56 L, Est GFR ( Amer) 68, Glucose 120 H, Calcium 9.2, Total Bilirubin 0.6, AST 28, ALT 20, Alkaline Phosphatase 95, Troponin I < 0.01, NT-Pro-B Natriuret Pep 147 H, Total Protein 7.5, Albumin 3.9, Globulin 3.6 H, Albumin/Globulin Ratio 1.1 04/29/24 12:05 04/29/24 12:05 Orders (Tests/Meds): ED MEDICATIONS Discontinued Medications Generic Name Dose Route Start Last Admin Trade Name Shira PRN Reason Stop Dose Admin Aspirin 324 mg 04/29/24 11:41 04/29/24 12:00 Aspirin 81mg Chewable Tablet PO 04/29/24 11:42 324 mg ONCE ONE Administration Ondansetron HCl 4 mg 04/29/24 11:55 04/29/24 12:00 Ondansetron 4mg/2ml Vial IV 04/29/24 11:56 4 mg ONCE ONE Administration ORDERS Category Date Time Status XR chest portable Stat Exams 04/29/24 11:41 Completed Complete Blood Count Auto Diff Stat Lab 04/29/24 12:05 Completed Comprehensive Metabolic Panel Stat Lab 04/29/24 12:05 Completed INR [Prothrombin Time INR] Stat Lab 04/29/24 12:05 Completed NT Pro Brain Natriuretic Pep. Stat Lab 04/29/24 12:05 Completed PTT [Activated Partial Thrombo Time] Stat Lab 04/29/24 12:05 Completed Troponin I Q3H Lab 04/29/24 14:45 Ordered Troponin I Q3H Lab 04/29/24 17:45 Ordered Troponin I Stat Lab 04/29/24 12:05 Completed Medical Decision Narrative: 63-year-old female history of illness anxiety disorder, hypertension, hyperlipidemia, attention seeking behavior, histrionic personality disorder, depression, anxiety, presenting with multiple complaints. Patient states that she was discharged yesterday, 04/28 from here at [facility]. States that since that time, she has had multiple episodes that she thinks are narcolepsy. Patient states that she has episodes where she ends up in different places around her trailer, does not remember how she got there or any other specific details, just realizes that she got there after she has already been in a new location. No falls, any other trauma. States that she called EMS today because she was feeling dizzy and vomited twice. Nonbloody, nonbilious. When EMS picked her up she states she had intermittent substernal chest pains, not currently having chest pain. Also states that she is having some headache. No neurologic deficits, shortness of breath, diaphoresis, or any other relevant history. History was obtained via conversation with patient and EMS. On arrival, patient hemodynamically stable, alert, oriented x4, appropriate, GCS 15, moving all extremities spontaneously, pupils equal and reactive to light. Full physical exam performed and significant for well-appearing female no acute distress. Cardiopulmonary exam normal, abdomen soft, nontender, nondistended. Patient at neurologic baseline. Hemodynamically stable, unremarkable exam. Differential includes malingering, attention seeking behavior, gastritis, enteritis, ACS, NV, among others. Patient placed on continuous cardiac monitoring and continuous pulse ox with initial blood pressure 129/71, heart rate 90, saturation 98% on room air. Independent interpretation of EKG shows sinus rhythm with first-degree AV block WV interval 273. Ventricular rate 87, QRS 120, QTc 427. Nonspecific T wave inversions in aVL without reciprocal change. Patient was given aspirin, Zofran for symptomatic management and correction of underlying abnormalities. Workup independently interpreted and significant for leukocytosis of 12.5. On independent interpretation of imaging, what appears to be atelectasis in the left lung, but no obvious consolidation. See radiology read for full review of final results. On reevaluation, patient resting at baseline. Given patient presentation, workup, history, this most likely represents gastroenteritis versus malingering. Given rest of workup is negative, deemed appropriate for outpatient management. Because patient at baseline without signs or symptoms of clinical decompensation, deemed appropriate for discharge. Results were relayed to patient who voiced understanding, but was frustrated and were agreeable to outpatient management and follow up. I discussed my clinical impression with patient and answered all questions. At this time, the evidence for any other entities in the differential is insufficient to warrant any further testing or ED observation. This was explained as well. Advisory was given that persistent or worsening symptoms require further evaluation. I confirmed the understanding of this discussion. Photographic Equipment Technician disclaimer Much of this encounter note is an electronic campus administrator spoken language to printed text. Electronic campus administrator of the spoken language may permit errors. Although I have reviewed the note, some errors may still exist. Critical Care Critical Care Time Critical Care Time: No
[2024-04-29] MEDS: ONDANSETRON 4MG/2ML VIAL 4 MG IV (12:00)
[2024-04-29] MEDS: ASPIRIN 81MG CHEWABLE TABLET 324 MG PO (12:00)
[2024-04-29 12:01] VITALS: BP 121/72; PULSE 84; O2SAT 95
[2024-04-29 12:15] LABS: Basophils # 0.1 K/mm3 (0-0.2); Basophils % 0.8 % (0.1-2.0); Eosinophils # 0.3 K/mm3 (0.0-0.4); Hematocrit 40.4 % (37.0-47.0); Hemoglobin 13.6 g/dL (12.2-16.2); Lymphocytes # 1.5 K/mm3 (0.7-4.5); Lymphocytes % 12.1 % (10-50); Mean Corpuscular HGB Conc 33.7 g/dL (31.8-35.4); Mean Corpuscular Hemoglobin 30.3 pg (27.0-31.2); Mean Corpuscular Volume 89.8 fl (81-99); Mean Platelet Volume 7.8 fl (7.4-10.4); Monocytes # 0.6 K/mm3 (0.1-1.0); Neutrophils % 80.2 % (37.0-80.0); Platelet Count 397 K/mm3 (142-424); Red Cell Distribution Width 14.6 % (11.5-17.5); White Blood Count 12.5 K/mm3 (4.8-10.8)
[2024-04-29 12:29] LABS: Alanine Aminotransferase 20 U/L (12-78); Albumin Level 3.9 g/dl (3.5-5.0); Albumin/Globulin Ratio 1.1 (1.1-1.8); Alkaline Phosphatase 95 U/L (38-126); Anion Gap 13.9 mEq/L (5-15); Aspartate Amino Transferase 28 U/L (14-36); Bilirubin,Total 0.6 mg/dl (0.2-1.3); Blood Urea Nitrogen 17 mg/dl (7-17); Calcium 9.2 mg/dl (8.4-10.2); Carbon Dioxide 24 mmol/L (22.0-30.0); Chloride 105 mmol/L (98-107); Creatinine Clearance Estimated 80 mL/min (50-200); Estimated Glomerular Filt Rate 56 ml/min (>60); GFR (African American) 68 ML/MIN (>60); Globulin 3.6 g/dL (1.3-3.2); Glucose 120 mg/dl (74-100); Potassium 3.9 mmoL/L (3.5-5.1); Sodium 139 mmol/L (136-145); Total Protein,Serum 7.5 g/dl (6.3-8.2)
[2024-04-29 12:31] LABS: Activated Partial Thrombo Time 26.2 seconds (22.8-30.6); INR 0.99 (0.9-1.1); Prothrombin Time 11.1 seconds (10.1-12.5)
[2024-04-29 12:39] LABS: NT Pro Brain Natriuretic Pep. 147 pg/mL (0-125)
[2024-04-29 12:40] LABS: Troponin I < 0.01 ng/ml (0.00-0.034)
[2024-04-29 15:00] VITALS: BP 140/72; PULSE 77; RESP 18; TEMP 36.9; O2SAT 97
== END 2024-04-29 15:01 | disposition home or self-care (01) ==
PROVIDERS: Emergency Provider Emergency Medicine; PCP Family Medicine
DX: R42 Dizziness and giddiness (principal); R11.10 Vomiting, unspecified
CPT/HCPCS: 71045; 80053; 83880; 84484; 85025; 85610; 85730; 93005; 96374; 99284; J2405

== ENCOUNTER 2024-05-28 14:36 | Outpatient (POV) | payer MEDICARE, MEDICAID, SELFPAY ==
--- NOTE | 2024-05-28 15:15 | A.OFFVIS_ITS ---
[facility] Disclaimer: The information contained in this section may have been updated after the patient was seen, as this information can be updated by other users. Medical History YANA (obstructive sleep apnea) Hiatal hernia Incontinence Insomnia Lung mass Family history of sarcoidosis Colon cancer screening Vitamin B12 deficiency Shortness of Breath Apneic episode Psoriatic arthritis Esophageal spasm Vertigo Kang's esophagus with esophagitis Anxiety Fibromyalgia GERD (gastroesophageal reflux disease) Hypothyroidism Restless leg syndrome Anxiety and depression Foot drop Mini stroke Psoriatic arthritis Restless leg syndrome Surgical History History of bariatric surgery H/O: hysterectomy H/O hernia repair History of bilateral knee replacement Femur fracture H/O gastric sleeve Hx of appendectomy History of cholecystectomy Family History Other Unknown family medical history Social History Smoking Status: Never smoker alcohol intake: never substance use type: denies use current occupational status: other Travel in the last 8 weeks: None number of children: 2 PM Subjective & Objective Subjective Subjective:: Patient is a pleasant 63-year-old female who presents today for worsening numbness and tingling into her lower extremities and shoulder pain. Today she rates her pain an 8 out of 10. Patient denies any new trauma or injury. Patient does state that she has been experiencing much worse numbness and ting ling into her bilateral lower extremities. Patient does state the pain is severe and is interfering with her ability perform activities of daily living such as cooking and cleaning. Patient did previously have a lumbar decompression bilaterally L3-L4 and L4-L5 back in January. Patient states that she has not had any problems with this procedure. Patient does state that the constant spasms and tightness along with the numbness and tingling is affecting her sleep even. Patient has been prescribed Gabapentin from an outside provider along with compounded cream and baclofen 5 mg 3 times a day from our office. Patient was given a temporary dose of Tylenol 3 twice a day in the past to get her to her surgical procedure. Patient does state that the baclofen at the lower dosage just does not seem to be working as well and is asking if we can go up higher on it. Her Omar has been reviewed and is appropriate. Review of Systems: General: No recent weight changes, no fever, no sleep disturbances Respiratory: No cough, no shortness of air, no recurring pulmonary infections Cardiovascular/peripheral vascular: No chest pain, no palpitations, no edema, no shortness of breath Gastrointestinal: No new onset incontinence, normal bowel movements reported Genitourinary: No new onset incontinence Musculoskeletal: Low back pain, leg pain Psychiatric: [Normal mood/affect] Neurological: [Denies weakness in extremities], [denies balance issues] Pain at rest (0-10 scale): 8 Objective Objective:: Physical Exam: General: Alert and oriented x3, no acute distress, pleasant and cooperative Lungs: Respirations even and unlabored, symmetrical chest expansion Eyes: PERRL Musculoskeletal: Flexion and extension of lumbar [spine] somewhat guarded secondary to pain, [antalgic gait noted] positive leg raise Neurological: Speech clear, no gross sensory deficit Has patient had previous pain injection?: No Conservative treatment options previously tried: Home exercise plan Length of treatment: Longer than 12 weeks Meds Home Medications and Allergies Home Medications ?Medication ?Instructions ?Recorded ?Confirmed ?Type albuterol sulfate 90 mcg/actuation 2 puff inhalation Q4-6H PRN 09/24/23 05/23/24 Rx aerosol inhaler shortness of breath or wheezing #8.5 grams fluticasone furoate 200 1 inh inhalation Q24H 09/24/23 05/23/24 History mcg-vilanterol 25 mcg/dose inhalation powder (Breo Ellipta) levothyroxine 125 mcg tablet 125 mcg PO DAILY 30 days #30 tabs 01/15/24 05/23/24 Rx acetaminophen 300 mg-codeine 30 mg 1 tab PO BID PRN pain #60 tabs 01/24/24 05/23/24 Rx tablet buspirone 10 mg tablet 10 mg PO TID #90 tabs 03/06/24 05/23/24 Rx gabapentin 800 mg tablet 800 mg PO TID #90 tabs 03/14/24 05/23/24 Rx ropinirole 1 mg tablet 1 mg PO TID #90 tabs 03/17/24 05/23/24 Rx omeprazole 40 mg capsule,delayed 40 mg PO BID 90 days #180 caps 04/07/24 05/23/24 Rx release furosemide 20 mg tablet (Lasix) 20 mg PO DAILY #30 tabs 04/23/24 05/23/24 Rx amitriptyline 50 mg tablet 50 mg PO HS 04/25/24 05/23/24 History lidocaine 4 % topical patch 1 patch topical DAILY PRN shoulder 04/25/24 05/23/24 History (Salonpas (lidocaine)) pain oxybutynin chloride 10 mg 10 mg PO HS 04/25/24 05/23/24 History tablet,extended release 24 hr nystatin 100,000 unit/gram topical 1 applic topical QID 10 days #60 04/28/24 05/23/24 Rx powder grams blood sugar diagnostic (Blood #50 ea 05/02/24 05/23/24 Rx Glucose Test strips) blood-glucose meter (Blood Glucose #1 ea 05/02/24 05/23/24 Rx Monitoring kit) polyethylene glycol 3350 17 17 g PO BID #1,020 grams 05/06/24 05/23/24 Rx gram/dose oral powder (Miralax) tirzepatide 2.5 mg/0.5 mL 2.5 mg (0.5 mL) SQ WEEKLY #2.5 mL 05/23/24 05/23/24 Rx subcutaneous pen injector (Mounjaro) New Prescriptions to Start Prescriptions: Allergies Allergy/AdvReac Type Severity Reaction Status Date / Time Sulfa (Sulfonamide Allergy Intermediate Verified 05/23/24 10:51 Antibiotics) morphine Allergy Mild Verified 05/23/24 10:51 aspartame (From Nutrasweet Allergy Verified 05/23/24 10:51 Aspartame) erythromycin base Allergy Verified 05/23/24 10:51 phenylalanine Allergy Verified 05/23/24 10:51 Assessment and Plan *Assessment and plan (1) Degenerative disc disease, lumbar: Status: Acute Category: Medical Code(s): M51.369 - Other intervertebral disc degeneration, lumbar region without mention of lumbar back pain or lower extremity pain (2) Lumbar radiculopathy: Status: Acute Category: Medical Code(s): M54.16 - Radiculopathy, lumbar region (3) Lumbar spinal stenosis: Status: Acute Qualifiers: Neurogenic claudication status: with neurogenic claudication Qualified Code(s): M48.062 - Spinal stenosis, lumbar region with neurogenic claudication Category: Medical Code(s): M48.061 - Spinal stenosis, lumbar region without neurogenic claudication (4) Lumbar stenosis with neurogenic claudication: Status: Acute Category: Medical Code(s): M48.062 - Spinal stenosis, lumbar region with neurogenic claudication Plan Patient is experiencing worsening pain in her low back with numbness and tingling into her bilateral lower extremities. Patient did have limited range of motion of her lumbar spine and positive leg raise. I did discuss with the patient that she may benefit from lumbar epidural steroid injection. Risk and benefits were discussed with the patient and she would like to proceed forward with this plan of care. Patient has tried and failed conservative therapy including oral medications, heat and ice, topicals, continued at home stretching exercise for longer than 12 weeks. Patient has previously had a lumbar epidural back in January before her lumbar decompression. I did discuss with the patient that she did even then had 50% improvement however it was only temporary and that nail it may even last longer now that her canal space has been opened up by debulking the ligamentum flavum hypertrophy that she had present. Patient agrees with this plan of care. Patient is not on any blood thinners. I will increase the baclofen to 10 mg 3 times daily and provide a 1 month supply of this medication. Patient will be scheduled for an LESI L4-L5 under fluoroscopy. Patient has been instructed to contact the clinic with any concerns before the next appointment. Dr. Sigala has reviewed this note and agrees with this plan of care. This note was dictated using voice recognition software and make contain errors or omissions. All injections are used with Lidocaine or Bupivacaine and Depo Medrol.
[2024-05-28 15:52] VITALS: BP 150/91; PULSE 65; RESP 14; O2SAT 97
== END 2024-05-28 23:59 | disposition home or self-care (01) ==
PROVIDERS: PCP Family Medicine; Visit Provider Nurse Practitioner Family
DX: M51.16 Intervertebral disc disorders with radiculopathy, lumbar region (principal); M48.062 Spinal stenosis, lumbar region with neurogenic claudication; Z73.89 Other problems related to life management difficulty; Z79.899 Other long term (current) drug therapy
CPT/HCPCS: 99212; G0463